=== PATIENT | female | born 1995 | race Caucasian/White ===

== ENCOUNTER 2019-05-09 18:55 | Inpatient (IN) | payer MEDICAID, OTHER ==
[2019-05-09] MEDS ORDERED: LORazepam 1 MG TAB PO STA (19:30)
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
[2019-05-09 20:56] LABS: Cocaine Screen,Urine Not Detected (NotDetected); Phencyclidine Screen,Urine Not Detected (NotDetected); Urn Cannabinoid Scrn Not Detected (NotDetected)
[2019-05-09 20:57] LABS: Amphetamine Screen,Urine Not Detected (NotDetected); Barbiturate Screen,Urine Not Detected (NotDetected); Benzodiazepines Screen,Urine Detected (NotDetected); Methadone Screen, Urine Not Detected (NotDetected); Opiate Screen,Urine Detected (NotDetected); Oxycodone Screen, Urine Not Detected (NotDetected); Tricyclic Antidepressant,Urine Not Detected (NotDetected)
[2019-05-09] MEDS ORDERED: MAGNESIUM HYDROXIDE 2,400 MG/10 ML CUP PO PRN (21:28)
[2019-05-09] MEDS ORDERED: MAG HYDROX/AL HYDROX/SIMETH 30 ML CUP PO PRN (21:28)
[2019-05-09] MEDS ORDERED: ZIPRASIDONE 20 MG VIAL IM PRN (21:28)
[2019-05-09] MEDS ORDERED: MELATONIN 10 MG PO SCH (21:30)
[2019-05-09] MEDS ORDERED: LORazepam 2 MG/ML INJ IM PRN (21:32)
[2019-05-09 21:48] LABS: Appearance,Urine Clear (Clear); Bilirubin,Urine Negative (Negative); Blood,Urine Large (Negative); Color,Urine Yellow; Glucose,Urine (UA) Negative (Negative); Ketones,Urine Negative (Negative); Leukocyte Esterase,Urine Negative (Negative); Mucus,Urine Occasional /hpf; Nitrite,Urine Negative (Negative); Protein,Urine Negative (Negative); RBC,Urine >182 /hpf (0-5); Specific Gravity,Urine 1.019 (1.001-1.035); Squamous Epithelial Cell,Urine 1 /hpf (0-4); Urobilinogen,Urine <2.0 mg/dL (<2.0); WBC,Urine <1 /hpf (0-5)
[2019-05-09 22:51] VITALS: BMI 21.9
[2019-05-09] MEDS: MELATONIN 5 MG TABLET PO SCH (23:00)
[2019-05-09] MEDS: PRAZOSIN 1 MG CAP PO SCH (23:47)
[2019-05-09] MEDS: SERTRALINE 100 MG TAB PO SCH (23:47)
--- NOTE | 2019-05-10 07:45 | P.HPMEDMHU ---
History of Present Illness H&P Date: 05/10/19 Chief Complaint: consult for MHU HPI The patient is a 23-year-old female with a past medical history of bipolar disorder, depression and anxiety, ADHD who is admitted to the psychiatry floor. Apparently the patient has been having episodes of paranoia reported samir t the staff at her [facility] were going to kill her, also claiming that the resident at [facility] is a devil and going to kill her. Apparently the patient's mom reported that the patient's symptoms became increasingly uncontrolled when she was taken off Abilify. The patient denies any chest pain shortness of breath nausea or vomiting, she reports intermittent headaches and breast pain at times but currently denies any of those symptoms. Patient is currently on her menstrual cycle. Patient denied any urinary symptoms such as dysuria or flank pain frequency UDS done in the ER was positive for benzodiazepines, urinalysis suggested microscopic hematuria Review of Systems Pertinent positives per HPI all other review of system was negative Past Medical History Past Medical History: No Reported History History of Any Multi-Drug Resistant Organisms: None Reported Past Surgical History: No Surgical Hx Reported Past Psychological History: Anxiety, Bipolar, Depression, Panic Disorder Smoking Status: Never smoker Past Alcohol Use History: None Reported Past Drug Use History: None Reported Medications and Allergies Home Medications Medication Instructions Recorded Confirmed Type LORazepam [Ativan] 0.5 mg PO Q4H PRN 05/09/19 05/09/19 History Melatonin 10 mg PO HS 05/09/19 05/09/19 History Methylphenidate HCl 72 mg PO DAILY 05/09/19 05/09/19 History [Methylphenidate HCl ER] Prazosin HCl 2 mg PO HS 05/09/19 05/09/19 History Sertraline HCl [Zoloft] 100 mg PO HS 05/09/19 05/09/19 History Allergies Allergy/AdvReac Type Severity Reaction Status Date / Time No Known Allergies Allergy Verified 05/09/19 22:52 Physical Exam Vitals: Vital Signs Temp Pulse Pulse Resp BP BP Pulse Ox 05/10/19 06:58 98.1 F 80 16 91/55 05/09/19 22:42 97.5 F L 76 16 133/81 05/09/19 18:57 98.6 F 141 H 20 140/88 99 Intake and Output 05/09/19 05/10/19 05/10/19 22:59 06:59 14:59 Other: Weight 54.431 kg Constitutional: No acute distress, sleepy but alert Eyes: Anicteric sclerae, moist conjunctiva, no lid-lag, PERRLA ENMT: NC/AT,Oropharynx clear, no erythema, exudates Neck:Supple, FROM, no masses, or JVD, No carotid bruits; No thyromegaly Lungs: Clear to auscultation, Clear to percussion, Normal respiratory effort, no accessory muscle use Cardiovascular: Heart regular in rate and rhythm, No murmurs, gallops, or rubs no peripheral edema Abdominal: Soft Nontender, nom distended, no guarding, no rebound or rigidity, Normoactive bowel sounds No hepatomegaly, No splenomegaly, No palpable mass No abdominal wall hernia noted Skin: Normal temperature, tone, texture, turgor, No induration No subcutaneous nodules, No rash, lesions, No ulcers Extremities:No digital cyanosis No clubbing, Pedal pulses intact and symmetrical Radial pulses intact and symmetrical Normal gait and station, No calf tenderness Psychiatric: Alert and oriented to person, place and time, poor insight flat affect previously reporting paranoid delusions Neuro: Muscles Strength 5/5 in all 4 extremities, Sensation to light touch grossly present throughout, Cranial nerves II-XII grossly intact. No focal sensory deficits Cranial Nerve Examination - Cranial Nerves Cranial Nerve II- Optic: Intact Cranial Nerve III- Oculomotor: Intact Cranial Nerve IV- Trochlear: Intact Cranial Nerve V- Trigeminal: Intact Cranial Nerve - Abducens: Intact Cranial Nerve VII- Facial: Intact Cranial Nerve VIII- Auditory: Intact Cranial Nerve IX- Glossopharyngeal: Intact Cranial Nerve X- Vagus: Intact Cranial Nerve XI- Accessory: Intact Cranial Nerve XII- Hypoglossal: Intact Results Labs: Abnormal Lab Results - Last 24 Hours (Table) 05/09/19 05/09/19 Range/Units 20:35 20:35 Urine Blood Large H (Negative) Urine RBC >182 H (0-5) /hpf Urine Mucus Occasional H (None) /hpf Urine Opiates Screen Detected H (NotDetected) U Benzodiazepines Scrn Detected H (NotDetected) Thrombosis Risk Factor Assmnt - Choose All That Apply Any of the Below Risk Factors Present?: No Other Risk Factors: No Other congenital or acquired thrombophilia - If yes, enter type in comment: No Thrombosis Risk Factor Assessment Level: Very Low Risk Assessment and Plan (1) Acute psychosis Current Visit: Yes Status: Acute Code(s): F23 - BRIEF PSYCHOTIC DISORDER SNOMED Code(s): 22961964 (2) Bipolar disorder Current Visit: Yes Status: Acute Code(s): F31.9 - BIPOLAR DISORDER, UNSPECIFIED SNOMED Code(s): 44303402 (3) Depression Current Visit: Yes Status: Acute Code(s): F32.9 - MAJOR DEPRESSIVE DISORDER, SINGLE EPISODE, UNSPECIFIED SNOMED Code(s): 41143070 (4) Anxiety Current Visit: Yes Status: Acute Code(s): F41.9 - ANXIETY DISORDER, UNSPECIFIED SNOMED Code(s): 38773529 (5) Paranoid schizophrenia Current Visit: Yes Status: Acute Code(s): F20.0 - PARANOID SCHIZOPHRENIA SNOMED Code(s): 51795466 (6) Microscopic hematuria Current Visit: Yes Status: Acute Code(s): R31.29 - OTHER MICROSCOPIC HEMATURIA SNOMED Code(s): 383652529 Plan: The patient is admitted to the acute inpatient psychiatry team will defer to them regarding ongoing psychotropic therapies and cognitive behavioral therapy. Per patient's history she denies any medical issues, her most recent vitals signs appear stable. Urinalysis suggested microscopic hematuria which is due to the patient being on her menstrual cycle. Admission labs are pending we'll tentatively sign off on the patient. We appreciate the opportunity to be involved in this patient's ongoing care. Nursing is advised to call with any questions Time with Patient: Greater than 30
[2019-05-10 10:29] LABS: Basophils % (A) 1 %; Eosinophils # (A) 0.1 k/uL (0-0.7); Eosinophils % (A) 3 %; HCT 39.3 % (34.0-46.0); Lymphocytes # (A) 1.3 k/uL (1.0-4.8); Lymphocytes % (A) 41 %; MCH 30.4 pg (25.0-35.0); Mean Platelet Volume 8.6; Monocytes # (A) 0.2 k/uL (0-1.0); Monocytes % (A) 8 %; Neutrophils # (A) 1.4 k/uL (1.3-7.7); Neutrophils % (A) 46 %; Platelet Count 166 k/uL (150-450); RBC 4.27 m/uL (3.80-5.40); RDW 12.1 % (11.5-15.5); WBC 3.1 k/uL (3.8-10.6)
[2019-05-10 11:05] LABS: ALT 37 U/L (9-52); AST 28 U/L (14-36); African American GFR (CKD) >90 (>60 ml/min/1.73 sqM); Albumin 4.3 g/dL (3.5-5.0); Alkaline Phosphatase 60 U/L (38-126); Anion Gap 9 mmol/L; Blood Urea Nitrogen 19 mg/dL (7-17); Calcium 9.2 mg/dL (8.4-10.2); Carbon Dioxide 26 mmol/L (22-30); Chloride 106 mmol/L (98-107); Cholesterol 151 mg/dL (<200); Glucose 56 mg/dL (74-99); HDL Cholesterol 51 mg/dL (40-60); LDL Cholesterol,Calculated 89 mg/dL (0-99); Potassium 4.4 mmol/L (3.5-5.1); Sodium 141 mmol/L (137-145); Total Bilirubin 0.4 mg/dL (0.2-1.3); Total Protein 7.2 g/dL (6.3-8.2); Triglycerides 54 mg/dL (<150)
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
[2019-05-10] MEDS: ACETAMINOPHEN TAB 325 MG TAB PO PRN (13:04)
[2019-05-10] MEDS: busPIRone HCl 10 MG TAB PO SCH ×2 (13:04→20:42)
[2019-05-10 17:47] LABS: Hemoglobin A1C 5.2 % (4.0-6.0)
[2019-05-10] MEDS: SERTRALINE 100 MG TAB PO SCH (20:43)
[2019-05-10] MEDS: PALIPERIDONE 3 MG TAB.ER.24 PO SCH (20:43)
[2019-05-10] MEDS: MELATONIN 5 MG TABLET PO SCH (20:43)
[2019-05-10] MEDS: PRAZOSIN 1 MG CAP PO SCH (20:43)
[2019-05-11] MEDS: busPIRone HCl 10 MG TAB PO SCH (08:21)
[2019-05-11] MEDS: CONCERTA 36 MG PO SCH (08:21)
[2019-05-11] MEDS: DOCUSATE 100 MG CAP PO SCH (11:47)
--- NOTE | 2019-05-11 12:05 | P.PN ---
Progress Note - Text Progress Note Date: 05/11/19 Interval History: Patient was seen this morning participating in group doing a puzzle and was ag reeable to designer writer in the office. Patient states that she did have some sharp pain earlier today in her abdomen and was somatically preoccupied with other discomforts and somatic symptoms. She stated that she is just finishing her menstrual cycle and also spoke about having constipation. Patient claimed that she is feeling mildly better with regards to her mood however continues to feel overwhelmed and preoccupied with the future and complains of anxiety. She states that her mother came yesterday to drop off her medications and gave her new shoes which she is happy about. She states that she is going to group which she is filing helpful. She states that her sleep was improved last night and has fair energy today. Patient continues to have poor insight and poor judgment. At this time patient denies any suicidal or homical ideations, intent or plan. Patient denies any auditory, visual hallucinations and denies any paranoia or delusions. Patient denies any side effects from the medications and has been compliant with meds. Mental Status Exam: General Appearance: Patient appears to be stated age is alert, directable however appears to be less frustrated and irritable. Patient has poor eye contact and poor hygiene and grooming. Behavior: Patient is seated in the chair, appears mildly anxious. Speech: Patient's speech is fluent and nonpressured. Mood/Affect: Patient reports their mood is mildly improved, affect is congruent Suicidality/Homicidality: Patient denies having any suicidal or homicidal ideation intent or plan. Perceptions: Patient admits to auditory or visual hallucinations. Though content/process: Patient is more goal oriented and less tangential today. Patient was catastrophizing multiple times and was somatically preoccupied. Memory and concentration: AOX3, grossly intact for the purposes of this session. Judgment and insight: Poor, improving mildly Assessment Schizoaffective disorder, depressed History of PTSD History of ADHD Intellectual disability Plan: -Patient continues to meet criteria for inpatient psychiatric admission for symptom stabilization and safety. Patient has signed adult voluntary form and medication consent and was placed in patient's chart. -Medications: Continue with Invega 3 mg nightly for mood stabilization/psychosis. Continue with Zoloft 100 mg daily for mood/anxiety. Continue with prazosin 2 mg daily at bedtime for nightmares. Continue with melatonin 10 mg daily at bedtime for sleep. Will increase BuSpar to 15 mg twice a day for anxiety. Patient can continue on her home dose of Concerta 72 mg daily for ADHD. -When necessary Ativan for agitation/aggression. -NRT -not needed as patient does not smoke -SW on board for discharge planning.
[2019-05-11] MEDS: LORazepam 1 MG TAB PO PRN (17:54)
[2019-05-11] MEDS: PALIPERIDONE 3 MG TAB.ER.24 PO SCH (21:12)
[2019-05-11] MEDS: busPIRone HCl 5 MG TAB PO SCH (21:12)
[2019-05-11] MEDS: PRAZOSIN 1 MG CAP PO SCH (21:12)
[2019-05-11] MEDS: SERTRALINE 100 MG TAB PO SCH (21:12)
[2019-05-11] MEDS: MELATONIN 5 MG TABLET PO SCH (21:13)
[2019-05-12 06:41] VITALS: RESP 16
[2019-05-12] MEDS: CONCERTA 36 MG PO SCH (08:31)
[2019-05-12] MEDS: busPIRone HCl 5 MG TAB PO SCH (08:31)
[2019-05-12] MEDS: DOCUSATE 100 MG CAP PO SCH (08:32)
[2019-05-12] MEDS ORDERED: busPIRone HCl 5 MG TAB PO ONE (08:45)
--- NOTE | 2019-05-12 09:11 | P.PN ---
Progress Note - Text Progress Note Date: 05/12/19 Interval History: Patient was seen this morning wandering the hallways and was agreeable to clinical writer in the office. Patient offered no overnight complaints and states that she is doing better overall. She states that she did have some sharp pain yesterday but this has gotten better today. Patient claimed that she is feeling better with regards to her mood and anxiety however claims that her anxiety is still somewhat high during the groups and she has difficulty around people. Patient also stated that sometimes during groups she feels that she is too "overwhelmed" and states that she is not able to keep up. She states that her sleep was improved last night and has fair energy today. Patient is having improving insight and poor judgment. At this time patient denies any suicidal or homical ideations, intent or plan. Patient denies any auditory, visual hallucinations and denies any paranoia or delusions. Patient denies any side effects from the medications and has been compliant with meds. Mental Status Exam: General Appearance: Patient appears to be stated age is alert, directable however appears to be less frustrated and irritable. Patient has improved eye contact and improved hygiene and grooming. Behavior: Patient is seated in the chair, appears less anxious. Speech: Patient's speech is fluent and nonpressured. Mood/Affect: Patient reports their mood is mildly improved, affect is congruent Suicidality/Homicidality: Patient denies having any suicidal or homicidal id eation intent or plan. Perceptions: Patient admits to auditory or visual hallucinations. Though content/process: Patient is more goal oriented and less tangential today. Memory and concentration: AOX3, grossly intact for the purposes of this session. Judgment and insight: Poor, improving mildly Assessment Schizoaffective disorder, depressed History of PTSD History of ADHD Intellectual disability Plan: -Patient continues to meet criteria for inpatient psychiatric admission for symptom stabilization and safety. Patient has signed adult voluntary form and medication consent and was placed in patient's chart. -Medications: Continue with Invega 3 mg nightly for mood stabilization/psychosis. Continue with Zoloft 100 mg daily for mood/anxiety. Continue with prazosin 2 mg daily at bedtime for nightmares. Continue with melatonin 10 mg daily at bedtime for sleep. Will increase BuSpar to 20 mg twice a day for anxiety. Continue with home dose of Concerta 72 mg daily for ADHD. -When necessary Ativan for agitation/aggression. -NRT -not needed as patient does not smoke -SW on board for discharge planning.
[2019-05-12] MEDS: LORazepam 1 MG TAB PO PRN (17:13)
[2019-05-12] MEDS: busPIRone HCl 10 MG TAB PO SCH (21:15)
[2019-05-12] MEDS: PRAZOSIN 1 MG CAP PO SCH (21:15)
[2019-05-12] MEDS: MELATONIN 5 MG TABLET PO SCH (21:15)
[2019-05-12] MEDS: SERTRALINE 100 MG TAB PO SCH (21:15)
[2019-05-12] MEDS: PALIPERIDONE 3 MG TAB.ER.24 PO SCH (21:16)
[2019-05-13] MEDS: LORazepam 1 MG TAB PO PRN (02:45)
[2019-05-13] MEDS: ACETAMINOPHEN TAB 325 MG TAB PO PRN (02:45)
[2019-05-13 05:22] VITALS: BP 111/70; PULSE 87; TEMP 98.1
[2019-05-13] MEDS: DOCUSATE 100 MG CAP PO SCH (08:57)
[2019-05-13] MEDS: busPIRone HCl 10 MG TAB PO SCH (08:57)
[2019-05-13] MEDS: CONCERTA 36 MG PO SCH (09:27)
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
== END 2019-05-13 15:47 | disposition home or self-care (01) | DRG 885 ==
LOC: EC 18:55 → 3MHU 21:19
PROVIDERS: ADMIT Psychiatry & Neurology Psychiatry; ATTEND Psychiatry & Neurology Psychiatry
DX: F25.1 Schizoaffective disorder, depressive type (principal); F79 Unspecified intellectual disabilities; F31.9 Bipolar disorder, unspecified; F41.0 Panic disorder [episodic paroxysmal anxiety]; F43.10 Post-traumatic stress disorder, unspecified; F90.9 Attention-deficit hyperactivity disorder, unspecified type; Z79.899 Other long term (current) drug therapy; Z91.5 Personal history of self-harm
CPT/HCPCS: 80053; 80061; 80306; 81001; 81025; 82075; 83036; 84443; 85025; 99285

== ENCOUNTER 2019-05-19 20:20 | Emergency (ER) | payer OTHER ==
[2019-05-19 20:31] VITALS: RESP 16
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
[2019-05-20 00:05] LABS: Basophils # (A) 0.1 k/uL (0-0.2); Basophils % (A) 1 %; Eosinophils # (A) 0.1 k/uL (0-0.7); Eosinophils % (A) 2 %; HCT 39.6 % (34.0-46.0); HGB 13.2 gm/dL (11.4-16.0); Lymphocytes # (A) 1.6 k/uL (1.0-4.8); Lymphocytes % (A) 22 %; MCH 30.1 pg (25.0-35.0); MCHC 33.5 g/dL (31.0-37.0); MCV 89.9 fL (80.0-100.0); Mean Platelet Volume 8.5; Monocytes # (A) 0.4 k/uL (0-1.0); Monocytes % (A) 5 %; Neutrophils # (A) 4.8 k/uL (1.3-7.7); Neutrophils % (A) 67 %; Platelet Count 184 k/uL (150-450); RDW 12.2 % (11.5-15.5); WBC 7.1 k/uL (3.8-10.6)
[2019-05-20 00:17] LABS: ALT 35 U/L (9-52); AST 23 U/L (14-36); African American GFR (CKD) >90 (>60 ml/min/1.73 sqM); Albumin 4.3 g/dL (3.5-5.0); Alkaline Phosphatase 62 U/L (38-126); Anion Gap 10 mmol/L; Blood Urea Nitrogen 15 mg/dL (7-17); Calcium 9.7 mg/dL (8.4-10.2); Carbon Dioxide 25 mmol/L (22-30); Chloride 104 mmol/L (98-107); Glucose 87 mg/dL (74-99); Potassium 3.7 mmol/L (3.5-5.1); Sodium 139 mmol/L (137-145); Total Bilirubin 0.4 mg/dL (0.2-1.3); Total Protein 7.2 g/dL (6.3-8.2)
[2019-05-20 01:59] LABS: Acetaminophen <10.0 ug/mL; Salicylate <1.0 mg/dL
[2019-05-20 02:02] VITALS: BP 128/86; PULSE 90; TEMP 97.1
[2019-05-20 02:17] LABS: Appearance,Urine Cloudy (Clear); Bacteria,Urine Rare /hpf; Bilirubin,Urine Negative (Negative); Blood,Urine Negative (Negative); Color,Urine Yellow; Glucose,Urine (UA) Negative (Negative); Ketones,Urine 1+ (Negative); Leukocyte Esterase,Urine Negative (Negative); Mucus,Urine Many /hpf; Nitrite,Urine Negative (Negative); PH, Urine 5.5 (5.0-8.0); Protein,Urine Trace (Negative); RBC,Urine 2 /hpf (0-5); Squamous Epithelial Cell,Urine 14 /hpf (0-4); Urobilinogen,Urine <2.0 mg/dL (<2.0); WBC,Urine 3 /hpf (0-5)
[2019-05-20 02:23] LABS: Amphetamine Screen,Urine Not Detected (NotDetected); Barbiturate Screen,Urine Not Detected (NotDetected); Benzodiazepines Screen,Urine Detected (NotDetected); Cocaine Screen,Urine Not Detected (NotDetected); Methadone Screen, Urine Not Detected (NotDetected); Opiate Screen,Urine Not Detected (NotDetected); Oxycodone Screen, Urine Not Detected (NotDetected); Phencyclidine Screen,Urine Not Detected (NotDetected); Tricyclic Antidepressant,Urine Not Detected (NotDetected); Urn Cannabinoid Scrn Not Detected (NotDetected)
== END 2019-05-20 05:00 ==
LOC: EEVIPCON 20:20 → EC 20:20
DX: F31.9 Bipolar disorder, unspecified (principal); R45.851 Suicidal ideations; F20.0 Paranoid schizophrenia; F41.9 Anxiety disorder, unspecified; Z79.899 Other long term (current) drug therapy
CPT/HCPCS: 82075; 36415; 80053; 85025; 81001; 81025; 80306; 83520; G0480; 80329; 99285

== ENCOUNTER 2019-11-14 19:18 | Inpatient (IN) | payer MEDICAID, OTHER ==
[2019-11-14 20:11] LABS: Amphetamine Screen,Urine Not Detected (NotDetected); Barbiturate Screen,Urine Not Detected (NotDetected); Benzodiazepines Screen,Urine Not Detected (NotDetected); Cocaine Screen,Urine Not Detected (NotDetected); Methadone Screen, Urine Not Detected (NotDetected); Opiate Screen,Urine Not Detected (NotDetected); Oxycodone Screen, Urine Not Detected (NotDetected); Phencyclidine Screen,Urine Not Detected (NotDetected); Tricyclic Antidepressant,Urine Not Detected (NotDetected); Urn Cannabinoid Scrn Not Detected (NotDetected)
[2019-11-14 21:15] LABS: Basophils % (A) 1 %; Eosinophils # (A) 0.1 k/uL (0-0.7); Eosinophils % (A) 1 %; HCT 40.4 % (34.0-46.0); HGB 13.8 gm/dL (11.4-16.0); Lymphocytes # (A) 1.5 k/uL (1.0-4.8); Lymphocytes % (A) 26 %; MCH 30.1 pg (25.0-35.0); MCV 88.4 fL (80.0-100.0); Mean Platelet Volume 9.5; Monocytes # (A) 0.4 k/uL (0-1.0); Monocytes % (A) 7 %; Neutrophils # (A) 3.6 k/uL (1.3-7.7); Neutrophils % (A) 63 %; Platelet Count 207 k/uL (150-450); RBC 4.57 m/uL (3.80-5.40); RDW 11.7 % (11.5-15.5); WBC 5.8 k/uL (3.8-10.6)
[2019-11-14 21:26] LABS: ALT 21 U/L (4-34); AST 26 U/L (14-36); African American GFR (CKD) >90 (>60 ml/min/1.73 sqM); Albumin 4.8 g/dL (3.5-5.0); Alkaline Phosphatase 84 U/L (38-126); Anion Gap 8 mmol/L; Blood Urea Nitrogen 20 mg/dL (7-17); Calcium 9.8 mg/dL (8.4-10.2); Carbon Dioxide 25 mmol/L (22-30); Chloride 103 mmol/L (98-107); Glucose 89 mg/dL (74-99); Non-African American GFR(CKD) >90 (>60 ml/min/1.73 sqM); Potassium 4.4 mmol/L (3.5-5.1); Sodium 136 mmol/L (137-145); Total Bilirubin 0.2 mg/dL (0.2-1.3); Total Protein 7.7 g/dL (6.3-8.2)
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
[2019-11-15] MEDS ORDERED: ZIPRASIDONE 20 MG VIAL IM PRN (02:27)
[2019-11-15] MEDS ORDERED: MAG HYDROX/AL HYDROX/SIMETH 30 ML CUP PO PRN (02:27)
[2019-11-15] MEDS ORDERED: MAGNESIUM HYDROXIDE 2,400 MG/10 ML CUP PO PRN (02:27)
[2019-11-15 02:56] LABS: Appearance,Urine Clear (Clear); Bilirubin,Urine Negative (Negative); Blood,Urine Negative (Negative); Color,Urine Light Yellow; Glucose,Urine (UA) Negative (Negative); Ketones,Urine Negative (Negative); Leukocyte Esterase,Urine Negative (Negative); Nitrite,Urine Negative (Negative); Protein,Urine Negative (Negative); Specific Gravity,Urine 1.023 (1.001-1.035); Urobilinogen,Urine <2.0 mg/dL (<2.0)
[2019-11-15 05:15] VITALS: RESP 16
[2019-11-15] MEDS: ACETAMINOPHEN TAB 325 MG TAB PO PRN (06:04)
[2019-11-15] MEDS: OXcarbazepine 150 MG TAB PO SCH ×3 (08:12→21:48)
[2019-11-15] MEDS: SERTRALINE 100 MG TAB PO SCH (08:12)
[2019-11-15] MEDS: LURASIDONE 80 MG TAB PO SCH ×2 (08:12→21:48)
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
[2019-11-15] MEDS ORDERED: ACETIC ACID 15 DROPS/ML DROPS ONE (22:00)
[2019-11-15] MEDS ORDERED: metroNIDAZOLE 500 MG TAB PO ONE (22:00)
[2019-11-15] MEDS: ACETIC ACID 15 DROPS/ML DROPS OTIC SCH (22:04)
[2019-11-15] MEDS: NEOMYCIN-POLYMYXIN-HC (3.5-10,000-10 MG) OTIC DROPS 10 ML BTL BOTH EARS SCH (22:05)
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
[2019-11-16] MEDS: NEOMYCIN-POLYMYXIN-HC (3.5-10,000-10 MG) OTIC DROPS 10 ML BTL BOTH EARS SCH ×4 (09:12→22:33)
[2019-11-16] MEDS: ACETIC ACID 15 DROPS/ML DROPS OTIC SCH ×4 (09:12→22:33)
[2019-11-16] MEDS: SERTRALINE 100 MG TAB PO SCH (09:13)
[2019-11-16] MEDS: LURASIDONE 80 MG TAB PO SCH ×2 (09:13→20:56)
[2019-11-16] MEDS: OXcarbazepine 150 MG TAB PO SCH ×3 (09:13→20:56)
--- NOTE | 2019-11-16 10:47 | P.PN ---
Progress Note - Text Interval history: The patient is found in group she follows me to an interview room. She indicates that her mood is "great". She states that she slept well last night staff reported she slept 7 hours. Appetite is stable. She indicates that she is speaking with her family via phone in those visits are going well. We discussed her current psychotropic medication she has no questions or concerns. We discussed strategies for her maintaining improve compliance at home. The patient has been attending groups. Staff report no behavioral disturbances. Mental status exam: The patient is alert she is pleasant and cooperative. She is dressed in her own clothing hygiene grooming are adequate. Eye contact is appropriate. Speech is fluent spontaneous nonpressured. She reports her mood is "great". Affect is euthymic. She is reporting no suicidal ideation intent or plan she is reporting no hopelessness thinking. She is reporting no hallucinations this morning. She specifically denies having any visual or auditory hallucinations no command auditory hallucinations. She indicates that she feels safe she is endorsing no specific delusions. Insight and judgment appear to be improving. She demonstrates no verbal or physical aggressiveness she demonstrates no involuntary repetitive movements. Plan: The patient will continue on her current psychotropic medication. She appears to be clinically stabilizing social work will reach out to her family to discuss discharge planning. If she continues to improve and remains stable she will be appropriate for discharge tomorrow. Vital signs reviewed they're within normal limits. She is encouraged to continue participating in the milieu.
[2019-11-16] MEDS: ACETAMINOPHEN TAB 325 MG TAB PO PRN ×2 (13:06→21:40)
[2019-11-17 06:41] VITALS: BP 116/78; PULSE 108; TEMP 97.8
[2019-11-17] MEDS: ACETIC ACID 15 DROPS/ML DROPS OTIC SCH ×2 (08:53→13:39)
[2019-11-17] MEDS: LURASIDONE 80 MG TAB PO SCH (08:54)
[2019-11-17] MEDS: NEOMYCIN-POLYMYXIN-HC (3.5-10,000-10 MG) OTIC DROPS 10 ML BTL BOTH EARS SCH ×2 (08:54→13:40)
[2019-11-17] MEDS: SERTRALINE 100 MG TAB PO SCH (08:54)
[2019-11-17] MEDS: OXcarbazepine 150 MG TAB PO SCH (08:54)
--- NOTE | 2019-11-17 10:26 | P.DS ---
Providers Date of admission: 11/15/19 02:24 Expected date of discharge: 11/17/19 Attending physician: Perez Ryan Consults: 11/15/19 02:27 Consult Physician Routine Consulting Provider: José Aldrich Consult Reason/Comments: new admission, H&P Do you want consulting provider notified?: Yes, Notify in am Primary care physician: Carina Pereyra - Discharge Diagnosis(es) (1) Acute psychosis Current Visit: No Status: Acute Priority: High (2) History of posttraumatic stress disorder (PTSD) Current Visit: No Status: Acute Priority: Medium Hospital Course: Brief summary admission note: This patient is a 24-year-old single female who was admitted to the mental health unit on a petition and clinical certificate indicating the patient was experiencing acute symptoms of psychosis. The patient described visual hallucinations where she was seen purple snakes on the floor water was on the floor and she describes seen ghosts. This was alarming to her it causes distress and she was yelling in the presence of her family. The patient has been prescribed Latuda Trileptal and Zoloft. She indicated that she was not fully compliant with the Latuda. She is also prescribed a higher dose of methylphenidate as well. For full details please refer to my psychiatric evaluation dated 11/15/2019. Summary of hospital course: The patient was admitted to the mental health unit on an existing deferral agreement. He was willing to sign in voluntarily. She indicated that she is willing to stay on all 3 of her psychotropic medications, the Zoloft, Latuda, Trileptal. We decided to hold the methylphenidate during this hospitalization as it could possibly exacerbate her psychosis. She indicated that she was accidentally missing her afternoon doses of Latuda and sometimes Trileptal. She states that she is willing to take the medication and believes that the medications help her. Upon our initial meeting she described no symptoms of psychosis and she demonstrated no symptoms of psychosis during the hospitalization. She has been pleasant cooperative she has been attending groups. She is able to demonstrate an ability to appropriately meet her activities of daily living. She described feelings of fatigue without the methylphenidate. She was seen by internal medicine for routine history and physical exam. hospital social worker met with the patient to complete a psychosocial assessment and for discharge planning purposes. Social work notes were reviewed. The patient's mother indicates that she is comfortable with the patient returning home today. The patient's reporting no hopelessness thinking no suicidal ideation intent or plan. She describes future oriented thinking specifically she states she is looking forward to returning to work next Thursday. Mental status exam: The patient is alert she is dressed in her own clothing hygiene grooming adequate. She is pleasant cooperative and easily directed. Eye contact is good speech is fluent spontaneous nonpressured. She demonstrates no tangential thinking loose associations or flight of ideas. She is reporting no auditory or visual hallucinations or any specific delusions. There is no observed evidence of psychosis. She does not appear hypomanic or manic. Insight and judgment appear to be grossly intact cognitively she remains grossly intact. She is oriented to person place and date. She demonstrates no verbal or physical aggressiveness she demonstrates no involuntary repetitive movements. She port no hopelessness thinking she reports no suicidal ideation intent or plan. She reports no homicidal ideation intent or plan. Impressions 1. Psychosis unspecified, rule out schizoaffective disorder, rule out stimulant-induced psychosis, post traumatic stress disorder chronic, rule out ADHD, rule out intellectual disability Plan: The patient will be discharged mental health unit today she will return residing with her family. She will continue on Latuda 80 mg twice daily with food she may take the second dose later in the evening to improve her compliance, she will continue on Trileptal 150 mg 3 times daily, her Trileptal level was 5.7 during this admission. She will continue the Zoloft 100 mg daily. We did not give her the methylphenidate during this admission as she presented with the report of acute psychosis. She is instructed to continue abstaining from any use of alcohol and marijuana or any illicit drugs. At this time there is no imminent safety risk she is appropriate for transition back to outpatient care. She is instructed to return to the hospital with any acute safety concerns. Patient Condition at Discharge: Stable Plan - Discharge Summary Discharge Rx Participant: No New Discharge Prescriptions: New Sertraline [Zoloft] 100 mg PO DAILY #30 tab Continue Lurasidone [Latuda] 80 mg PO BID #60 tab OXcarbazepine [Trileptal] 150 mg PO TID #45 tab Discontinued Methylphenidate HCl [Methylphenidate HCl ER] 72 mg PO DAILY Sertraline HCl [Zoloft] 200 mg PO DAILY Discharge Medication List Lurasidone [Latuda] 80 mg PO BID #60 tab 11/17/19 [Rx] OXcarbazepine [Trileptal] 150 mg PO TID #45 tab 11/17/19 [Rx] Sertraline [Zoloft] 100 mg PO DAILY #30 tab 11/17/19 [Rx] Follow up Appointment(s)/Referral(s): [facility] [Outside] - 11/22/19 1:30 pm (11-22-19 @ 1:[address] Fink via telepsych (she must come to [facility]) 11-23-19 @ 1:00 with [facility] via phone ) Carina Pereyra MD [Primary Care Provider] - 1-2 days Patient Instructions/Handouts: Brief Psychotic Disorder (DC) Activity/Diet/Wound Care/Special Instructions: Activity and diet as tolerated. Avoid the use of street drugs and alcohol. Take all medications as prescribed. When you are in need of refills on your medications please contact your medical provider and/or outpatient psychiatrist to have this done. Please go to scheduled outpatient appointment for aftercare. If symptoms return or become worse call the crisis line at and/or go to the nearest emergency room for an evaluation.
== END 2019-11-17 13:34 | disposition home or self-care (01) | DRG 885 ==
LOC: EC 19:18 → 3MHU 11-15 02:24
PROVIDERS: ADMIT Psychiatry & Neurology Psychiatry; ATTEND Psychiatry & Neurology Psychiatry
DX: F25.9 Schizoaffective disorder, unspecified (principal); F41.0 Panic disorder [episodic paroxysmal anxiety]; F43.10 Post-traumatic stress disorder, unspecified; Z79.899 Other long term (current) drug therapy; Z91.5 Personal history of self-harm; Z62.810 Personal history of physical and sexual abuse in childhood; L29.2 Pruritus vulvae; T43.506A Underdosing of unspecified antipsychotics and neuroleptics, initial encounter; Z91.128 Patient's intentional underdosing of medication regimen for other reason
CPT/HCPCS: 36415; 80053; 80061; 80183; 80306; 81003; 81025; 82075; 83036; 83690; 84443; 85025; 93005; 99285

== ENCOUNTER 2020-02-02 15:53 | Inpatient (IN) | payer MEDICAID, OTHER ==
[2020-02-02] MEDS ORDERED: LORazepam 2 MG/ML INJ IM STA (16:18)
[2020-02-02] MEDS ORDERED: LORazepam 1 MG TAB PO STA (16:18)
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
[2020-02-02 17:54] LABS: Amphetamine Screen,Urine Not Detected (NotDetected); Barbiturate Screen,Urine Not Detected (NotDetected); Benzodiazepines Screen,Urine Not Detected (NotDetected); Cocaine Screen,Urine Not Detected (NotDetected); Methadone Screen, Urine Not Detected (NotDetected); Opiate Screen,Urine Not Detected (NotDetected); Oxycodone Screen, Urine Not Detected (NotDetected); Phencyclidine Screen,Urine Not Detected (NotDetected); Tricyclic Antidepressant,Urine Not Detected (NotDetected); Urn Cannabinoid Scrn Not Detected (NotDetected)
[2020-02-02] MEDS ORDERED: ACETAMINOPHEN TAB 325 MG TAB PO STA (20:51)
[2020-02-02] MEDS ORDERED: MAGNESIUM HYDROXIDE 2,400 MG/10 ML CUP PO PRN (21:36)
[2020-02-02] MEDS ORDERED: ACETAMINOPHEN TAB 325 MG TAB PO PRN (21:36)
[2020-02-02] MEDS ORDERED: ZIPRASIDONE 20 MG VIAL IM PRN (21:36)
[2020-02-02] MEDS ORDERED: MAG HYDROX/AL HYDROX/SIMETH 30 ML CUP PO PRN (21:36)
[2020-02-02] MEDS: OXcarbazepine 150 MG TAB PO SCH (22:00)
[2020-02-02] MEDS: LORazepam 1 MG TAB PO PRN (22:03)
[2020-02-02 23:21] LABS: Appearance,Urine Clear (Clear); Bilirubin,Urine Negative (Negative); Blood,Urine Moderate (Negative); Color,Urine Yellow; Glucose,Urine (UA) Negative (Negative); Ketones,Urine Negative (Negative); Leukocyte Esterase,Urine Negative (Negative); Mucus,Urine Many /hpf; Nitrite,Urine Negative (Negative); Protein,Urine Trace (Negative); RBC,Urine 77 /hpf (0-5); Specific Gravity,Urine 1.029 (1.001-1.035); Squamous Epithelial Cell,Urine 6 /hpf (0-4); Urobilinogen,Urine <2.0 mg/dL (<2.0); WBC,Urine 1 /hpf (0-5)
[2020-02-03 08:19] LABS: Basophils % (A) 1 %; Eosinophils # (A) 0.1 k/uL (0-0.7); Eosinophils % (A) 2 %; HCT 39.5 % (34.0-46.0); HGB 12.4 gm/dL (11.4-16.0); Lymphocytes # (A) 1.6 k/uL (1.0-4.8); Lymphocytes % (A) 37 %; MCH 28.6 pg (25.0-35.0); MCHC 31.3 g/dL (31.0-37.0); MCV 91.3 fL (80.0-100.0); Mean Platelet Volume 8.7; Monocytes # (A) 0.4 k/uL (0-1.0); Monocytes % (A) 8 %; Neutrophils # (A) 2.2 k/uL (1.3-7.7); Neutrophils % (A) 49 %; Platelet Count 208 k/uL (150-450); RBC 4.32 m/uL (3.80-5.40); RDW 12.4 % (11.5-15.5); WBC 4.4 k/uL (3.8-10.6)
[2020-02-03 08:31] LABS: ALT 34 U/L (4-34); AST 36 U/L (14-36); African American GFR (CKD) >90 (>60 ml/min/1.73 sqM); Alkaline Phosphatase 66 U/L (38-126); Anion Gap 6 mmol/L; Blood Urea Nitrogen 14 mg/dL (7-17); Carbon Dioxide 26 mmol/L (22-30); Chloride 105 mmol/L (98-107); Cholesterol 223 mg/dL (<200); Glucose 87 mg/dL (74-99); HDL Cholesterol 66 mg/dL (40-60); LDL Cholesterol,Calculated 145 mg/dL (0-99); Non-African American GFR(CKD) >90 (>60 ml/min/1.73 sqM); Sodium 137 mmol/L (137-145); Total Bilirubin 0.3 mg/dL (0.2-1.3); Total Protein 6.8 g/dL (6.3-8.2); Triglycerides 61 mg/dL (<150)
[2020-02-03] MEDS ORDERED: LURASIDONE 80 MG TAB PO SCH (09:00)
[2020-02-03] MEDS: OXcarbazepine 150 MG TAB PO SCH ×3 (10:58→21:54)
[2020-02-03] MEDS: SERTRALINE 100 MG TAB PO SCH (10:58)
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
[2020-02-03 16:48] LABS: Hemoglobin A1C 5.1 % (4.0-6.0)
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
[2020-02-03 21:31] LABS: Amorphous Sediment,Urine Rare /hpf; Appearance,Urine Cloudy (Clear); Bacteria,Urine Occasional /hpf; Bilirubin,Urine Negative (Negative); Blood,Urine Large (Negative); Color,Urine Yellow; Glucose,Urine (UA) Negative (Negative); Hyaline Casts,Urine 4 /lpf (0-2); Ketones,Urine Negative (Negative); Leukocyte Esterase,Urine Moderate (Negative); Mucus,Urine Many /hpf; Nitrite,Urine Negative (Negative); PH, Urine 5.5 (5.0-8.0); Protein,Urine Trace (Negative); RBC,Urine 4 /hpf (0-5); Specific Gravity,Urine 1.031 (1.001-1.035); Squamous Epithelial Cell,Urine 10 /hpf (0-4); Urobilinogen,Urine <2.0 mg/dL (<2.0); WBC,Urine 8 /hpf (0-5)
[2020-02-04] MEDS: SERTRALINE 100 MG TAB PO SCH (08:43)
[2020-02-04] MEDS: OXcarbazepine 150 MG TAB PO SCH ×3 (08:43→20:54)
[2020-02-04] MEDS ORDERED: ARIPiprazole 5 MG TAB PO SCH (09:00)
--- NOTE | 2020-02-04 11:18 | P.PN ---
Progress Note - Text Progress Note Date: 02/04/20 Interval History: Patient was seen laying down in her bed this morning and was directable and ag reeable to speak with typewriter operator automatic in the office. Patient appeared to be just waking up from sleep and claims that she has mainly been isolative most of yesterday. She states that she has not gone any groups so far. She claims that she has been taking her medications however states that "my medications are all messed up and you don't know what you're doing". She denies any marked galactorrhea at this time and is agreeable to continue with the medications. She claims that she slept well last night. She states that her mood is continued to be depressed. At this time patient denies any suicidal or homical ideations, intent or plan. Patient denies any auditory, visual hallucinations and denies any paranoia or delusions. Patient denies any side effects from the medications and has been compliant with meds. Mental Status Exam: General Appearance: Patient appears to be stated age is lethargic, directable, and attempts to cooperate. Patient appears to have poor hygiene and grooming. Behavior: Patient is seated without any agitated behavior. Attempts to cooperate. Isolative. Speech: Patient's speech is fluent and nonpressured. Soft tone. Mood/Affect: Patient reports their mood is depressed, affect is congruent and constricted. Suicidality/Homicidality: Patient denies having any homicidal ideation intent or plan. Denies any suicidal ideations intent or plan Perceptions: Patient denies any visual hallucinations and denies any auditory hallucinations Though content/process: There is no evidence of any delusional thought content and thought process is linear and goal-directed. [place]. Memory and concentration: AOX3, grossly intact for the purposes of this session Judgment and insight: poor, mildly improving Assessment Mood disorder unspecified History of PTSD Histrionic personality traits Plan: -Patient continues to meet criteria for inpatient psychiatric admission for symptom stabilization and safety. Patient has signed adult voluntary form and medication consent and was placed in patient's chart. -Medications: Continue with Trileptal 150 mg 3 times a day for mood stabilization, Zoloft 200 mg daily for mood/anxiety, Abilify was increased to 5 mg daily for mood stabilization -When necessary Ativan and Geodon for agitation/aggression. -NRT -not needed as patient does not smoke. -SW on board for discharge planning. Encouraged the patient to participate in milieu.
[2020-02-04] MEDS: LORazepam 1 MG TAB PO PRN (19:35)
[2020-02-05] MEDS ORDERED: ARIPiprazole 5 MG TAB PO SCH (09:00)
[2020-02-05] MEDS: OXcarbazepine 150 MG TAB PO SCH ×3 (09:08→21:30)
[2020-02-05] MEDS: SERTRALINE 100 MG TAB PO SCH (09:08)
--- NOTE | 2020-02-05 10:37 | P.PN ---
Progress Note - Text Progress Note Date: 02/05/20 Interval History: Patient was seen laying down in her bed this morning and was directable and ag reeable to speak with typewriter assembler in the office. Patient appeared to have a improvement in her affect this morning and claims that she is feeling better today. She claims that the medications of slowly been helping her however remains tired during the day. She claims that she is usually on Concerta which was started at [facility] and it allows her to function better during the day and was asked to be restarted on it. She states that she was able sleep well throughout the night and claims that she has been going to some groups however was finding it difficult to participate in. She was asking about discharge today as she has a job that she needs to get back to. She denies any marked galactorrhea at this time and is agreeable to continue with the medications. At this time patient denies any suicidal or homical ideations, intent or plan. Patient denies any auditory, visual hallucinations and denies any paranoia or delusions. Patient denies any side effects from the medications and has been compliant with meds. Mental Status Exam: General Appearance: Patient appears to be stated age is lethargic, directable, and attempts to cooperate. Patient appears to have poor hygiene and grooming. Behavior: Patient is seated without any agitated behavior. Attempts to cooperate. Speech: Patient's speech is fluent and nonpressured. Soft tone. Mood/Affect: Patient reports their mood is improving mildly, affect is congruent and brighter affect today Suicidality/Homicidality: Patient denies having any homicidal ideation intent or plan. Denies any suicidal ideations intent or plan Perceptions: Patient denies any visual hallucinations and denies any auditory hallucinations Though content/process: There is no evidence of any delusional thought content and thought process is linear and goal-directed. [place]. Memory and concentration: AOX3, grossly intact for the purposes of this session Judgment and insight: poor, mildly improving Assessment Mood disorder unspecified History of PTSD Histrionic personality traits Plan: -Patient continues to meet criteria for inpatient psychiatric admission for symptom stabilization and safety. Patient has signed adult voluntary form and medication consent and was placed in patient's chart. -Medications: Continue with Trileptal 150 mg 3 times a day for mood stabilization, Zoloft 200 mg daily for mood/anxiety, Abilify was increased to 10 mg daily for mood stabilization. We'll consider placing patient on Abilify Maintenna to ensure compliance. -When necessary Ativan and Geodon for agitation/aggression. -NRT -not needed as patient does not smoke. -SW on board for discharge planning. Encouraged the patient to participate in milieu. Likely discharge in 1-2 days back home.
[2020-02-05] MEDS: LORazepam 1 MG TAB PO PRN ×2 (12:21→21:31)
[2020-02-06 07:02] VITALS: RESP 18; TEMP 97.9
[2020-02-06] MEDS: OXcarbazepine 150 MG TAB PO SCH ×3 (09:04→20:46)
[2020-02-06] MEDS: SERTRALINE 100 MG TAB PO SCH (09:04)
[2020-02-06] MEDS: ARIPiprazole 10 MG TAB PO SCH (09:04)
--- NOTE | 2020-02-06 09:08 | P.PN ---
Progress Note - Text Progress Note Date: 02/06/20 Interval History: Patient was seen laying down in her bed this morning and was directable and ag reeable to speak with health science writer in the office. Patient appeared to have a improvement in her affect this morning. She claims that she was able to shower yesterday and states that she feels "better overall". She claims that her meds have been helping her mood and claims that she feels less depressed today. She states that she spoke with her mother yesterday and claims that she wants to go home and go back to work soon. She states that she was able sleep well throughout the night. She states that she attempted to go to some groups. She did claim that she is continuing to have some galactorrhea which she bnoticed yesterday and will continue to monitor it. At this time patient denies any suicidal or homical ideations, intent or plan. Patient denies any auditory, visual hallucinations and denies any paranoia or delusions. Patient denies any side effects from the medications and has been compliant with meds. Mental Status Exam: General Appearance: Patient appears to be stated age is lethargic, directable, and attempts to cooperate. Patient appears to have improving hygiene and grooming. Behavior: Patient is seated without any agitated behavior. Attempts to cooperate. Speech: Patient's speech is fluent and nonpressured. Soft tone. Mood/Affect: Patient reports their mood is improving mildly, affect is congruent and constrcited today Suicidality/Homicidality: Patient denies having any homicidal ideation intent or plan. Denies any suicidal ideations intent or plan Perceptions: Patient denies any visual hallucinations and denies any auditory hallucinations Though content/process: There is no evidence of any delusional thought content and thought process is linear and goal-directed. [place]. Memory and concentration: AOX3, grossly intact for the purposes of this session Judgment and insight: mildly improving Assessment Mood disorder unspecified History of PTSD Histrionic personality traits Plan: -Patient continues to meet criteria for inpatient psychiatric admission for symptom stabilization and safety. Patient has signed adult voluntary form and medication consent and was placed in patient's chart. -Medications: Continue with Trileptal 150 mg 3 times a day for mood stabilization, Zoloft 200 mg daily for mood/anxiety, Abilify continued at 10 mg daily for mood stabilization. Spoke with patient about Abilify Maintenna MONTEIRO however she declined it at this time and claims that she has been taking her meds with the help of her mother at home everyday. -When necessary Ativan and Geodon for agitation/aggression. -NRT -not needed as patient does not smoke. -SW on board for discharge planning. Encouraged the patient to participate in milieu. Likely discharge back home tomorrow.
[2020-02-07 06:50] VITALS: BP 145/96; PULSE 94
[2020-02-07] MEDS: LORazepam 1 MG TAB PO PRN (07:56)
[2020-02-07] MEDS: ARIPiprazole 10 MG TAB PO SCH (09:18)
[2020-02-07] MEDS: OXcarbazepine 150 MG TAB PO SCH (09:18)
[2020-02-07] MEDS: SERTRALINE 100 MG TAB PO SCH (09:18)
--- NOTE | 2020-02-07 10:01 | P.DS ---
Providers Date of admission: 02/02/20 20:47 Expected date of discharge: 02/07/20 Attending physician: Chris Montague MD Consults: 02/02/20 21:36 Consult Physician Routine Consulting Provider: José Physician Consult Reason/Comments: H & P and medical care Do you want consulting provider notified?: Yes Primary care physician: Carina Pereyra - Discharge Diagnosis(es) (1) Mood disorder Current Visit: Yes Status: Acute Priority: High (2) History of posttraumatic stress disorder (PTSD) Current Visit: Yes Status: Acute Priority: Medium (3) Histrionic personality Current Visit: Yes Status: Acute Priority: Low Hospital Course: Admission HPI: Admission and was completed by Dr. 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 Patient's adoptive parents are guardians. Patient presented to the hospital yesterday with the chief complaint of significant increase in her anxiety. Patient also complained of side effects from her medications and was admitted to the mental health unit. Patient states that she feels that [facility] is "messing everything up" and claims that "the doctors are changing everything". She states that she was experiencing galactorrhea in the past and has started to have development of some galactorrhea recently with medication changes. Patient was a poor historian regarding her medication adjustments and what she is taking however she states that her parents do help her with her medications and taking them every day. She states that she was discontinued off of Risperdal months ago. She also claimed that she is on "too many medications" and has been finding them confusing. She states that "I can sleep the whole day" so admits to poor motivation. She was somatically preoccupied speaking about headaches and other pains in her body. She states have a fair appetite. She endorsed weight gain however did not mention how much weight. She states that she has bad anxiety and feels depressed and also fatigued at this time. Patient denies any suicidal or homicidal ideations intent or plan. At this time patient denies any auditory or visual hallucinations. Patient denies any flight of ideas racing thoughts and increased in goal directed behavior. Patient admits to using alcohol occasionally and denies any other recreational drug use. Special Education Teachers spoke with Dr. Nunn from [facility] who is patient's outpatient psychiatrist over the phone to discuss patient's history and patient's treatment. Dr. Nunn felt that patient has histrionic traits and somatitizes her depression and anxiety and has a history of intellectual disability and has difficulty remembering her medications. Dr. Nunn felt the patient would benefit from Abilify to help with the galactorrhea and mood lability." Hospital course: Upon admission to the unit patient was initially depressed and anxious. Patient was however directable and agreeable to commence treatment. Patient got along well with other patients on the unit and followed unit protocol. Patient was compliant with the medications and denied any side effects throughout hospital course. Patient was started on Abilify by mouth and titrated up to a dose of 10 mg daily for mood stabilization/psychosis. Patient's Latuda was discontinued due to possibility of exacerbating galactorrhea. Patient was continued on her home dose of Zoloft 200 mg daily for mood/anxiety, patient was also restarted on her home dose of Trileptal 150 mg twice a day for mood stabilization. Patient was offered Abilify Maintenna long-acting injection to ensure compliance however patient adamantly declined and states that her mother helps her with compliance at home of her medications. Patient spoke of her stressors and engaged in therapy both group and individual. Patient was also seen by medical team for history and physical exam. Throughout the course of the hospitalization patient gradually improved with regards to mood, anxiety, sleep and became more future oriented with improvment in her insight and judgment. On the day of discharge patient denied any suicidal or homicidal ideations intent or plan denied any auditory or visual hallucinations. Patient endorsed wanting to live for her family and her job. The patient denied any access to guns or weapons. Patient denied any paranoia and did not endorse any delusions. Patient does not have a significant history of substance abuse however was counseled on abstaining from all substances including alcohol and marijuana. Patient was also counseled on the medications and need for regular compliance and was encouraged to follow-up with their outpatient appointment for mental health and also for primary care. Prior to discharge a family meeting will be arranged by outreach and education social worker to answer any questions and ensure safety upon discharge. Mental status exam: General Appearance: Patient appears to be stated age is alert, directable, and attempts to be cooperative. Patient is in no acute distress and has fair hygiene and grooming Behavior: Patient is calmly seated without any agitated behavior. Attempts to be cooperative. Speech: Patient's speech is fluent and nonpressured. Mood/Affect: Patient reports their mood is "good", affect is congruent and constricted Suicidality/Homicidality: Patient denies having any suicidal or homicidal ideation intent or plan. Perceptions: Patient denies any auditory or visual hallucinations. Though content/process: There is no evidence of any delusional thought content and thought process is linear and goal-directed. more future oriented Memory and concentration: AOX3, grossly intact for the purposes of this session. Can spell "WORLD" backwards correctly. Judgment and insight: Improved with guarded prognosis Impression: Mood disorder unspecified History of PTSD Histrionic personality disorder Plan: -Continue with discharge today as patient has improved and stabilized psychiatrically and is not currently an imminent threat to herself and/or others. -Continue medications: Abilify by mouth 10 mg daily for mood stabilization/psychosis, this medication can be switched to daily at bedtime dosing if patient believes that it is causing some daytime fatigue. Continue with Trileptal 150 mg twice a day for mood stabilization and Zoloft 200 mg daily for mood/anxiety. -Patient was counseled on the need for medication compliance and appropriate follow-up at mental health and also primary care for medical issues. Patient verbalized understanding and agreed. -Social work to arrange for and conduct family meeting to ensure safety upon discharge and answer any questions/concerns. Social work also to arrange for patients follow up appointments with [facility] for psychiatric care along with follow up with primary care provider. -Patient counseled on abstaining from recreational drugs and marijuana and alcohol. Was informed/educated on the adverse effects on their physical and mental health. Patient verbally agreed and understood]. -Patient was instructed to return to the hospital or seek immediate medical care if their psychiatric or medical symptoms do worsen or reoccur. Allergies Allergy/AdvReac Type Severity Reaction Status Date / Time No Known Allergies Allergy Verified 02/02/20 19:32 Laboratory Results WBC 4.4 k/uL (3.8-10.6) 02/03/20 07:58 RBC 4.32 m/uL (3.80-5.40) 02/03/20 07:58 Hgb 12.4 gm/dL (11.4-16.0) 02/03/20 07:58 Hct 39.5 % (34.0-46.0) 02/03/20 07:58 MCV 91.3 fL (80.0-100.0) 02/03/20 07:58 MCH 28.6 pg (25.0-35.0) 02/03/20 07:58 MCHC 31.3 g/dL (31.0-37.0) 02/03/20 07:58 RDW 12.4 % (11.5-15.5) 02/03/20 07:58 Plt Count 208 k/uL (150-450) 02/03/20 07:58 Neutrophils % 49 % 02/03/20 07:58 Lymphocytes % 37 % 02/03/20 07:58 Monocytes % 8 % 02/03/20 07:58 Eosinophils % 2 % 02/03/20 07:58 Basophils % 1 % 02/03/20 07:58 Neutrophils # 2.2 k/uL (1.3-7.7) 02/03/20 07:58 Lymphocytes # 1.6 k/uL (1.0-4.8) 02/03/20 07:58 Monocytes # 0.4 k/uL (0-1.0) 02/03/20 07:58 Eosinophils # 0.1 k/uL (0-0.7) 02/03/20 07:58 Basophils # 0.0 k/uL (0-0.2) 02/03/20 07:58 Sodium 137 mmol/L (137-145) 02/03/20 07:58 Potassium 4.0 mmol/L (3.5-5.1) 02/03/20 07:58 Chloride 105 mmol/L (98-107) 02/03/20 07:58 Carbon Dioxide 26 mmol/L (22-30) 02/03/20 07:58 Anion Gap 6 mmol/L 02/03/20 07:58 BUN 14 mg/dL (7-17) 02/03/20 07:58 Creatinine 0.84 mg/dL (0.52-1.04) 02/03/20 07:58 Est GFR (CKD-EPI)AfAm >90 (>60 ml/min/1.73 sqM) 02/03/20 07:58 Est GFR (CKD-EPI)NonAf >90 (>60 ml/min/1.73 sqM) 02/03/20 07:58 Glucose 87 mg/dL (74-99) 02/03/20 07:[address] Glu mg/dL 100 02/03/20 07:58 Hemoglobin A1c 5.1 % (4.0-6.0) 02/03/20 07:58 Calcium 9.0 mg/dL (8.4-10.2) 02/03/20 07:58 Total Bilirubin 0.3 mg/dL (0.2-1.3) 02/03/20 07:58 AST 36 U/L (14-36) 02/03/20 07:58 ALT 34 U/L (4-34) 02/03/20 07:58 Alkaline Phosphatase 66 U/L (38-126) 02/03/20 07:58 Total Protein 6.8 g/dL (6.3-8.2) 02/03/20 07:58 Albumin 4.0 g/dL (3.5-5.0) 02/03/20 07:58 Triglycerides 61 mg/dL (<150) 02/03/20 07:58 Cholesterol 223 mg/dL (<200) H 02/03/20 07:58 LDL Cholesterol, Calc 145 mg/dL (0-99) H 02/03/20 07:58 HDL Cholesterol 66 mg/dL (40-60) H 02/03/20 07:58 TSH 2.550 mIU/L (0.465-4.680) 02/03/20 07:58 Urine Color Yellow 02/03/20 Unknown Urine Appearance Cloudy (Clear) H 02/03/20 Unknown Urine pH 5.5 (5.0-8.0) 02/03/20 Unknown Ur Specific [place] 1.031 (1.001-1.035) 02/03/20 Unknown Urine Protein Trace (Negative) H 02/03/20 Unknown Urine Glucose (UA) Negative (Negative) 02/03/20 Unknown Urine Ketones Negative (Negative) 02/03/20 Unknown Urine Blood Large (Negative) H 02/03/20 Unknown Urine Nitrite Negative (Negative) 02/03/20 Unknown Urine Bilirubin Negative (Negative) 02/03/20 Unknown Urine Urobilinogen <2.0 mg/dL (<2.0) 02/03/20 Unknown Ur Leukocyte Esterase Moderate (Negative) H 02/03/20 Unknown Urine RBC 4 /hpf (0-5) 02/03/20 Unknown Urine WBC 8 /hpf (0-5) H 02/03/20 Unknown Ur Squamous Epith Cells 10 /hpf (0-4) H 02/03/20 Unknown Amorphous Sediment Rare /hpf (None) H 02/03/20 Unknown Urine Bacteria Occasional /hpf (None) H 02/03/20 Unknown Hyaline Casts 4 /lpf (0-2) H 02/03/20 Unknown Urine Mucus Many /hpf (None) H 02/03/20 Unknown Urine HCG, Qual Not Detected (Not Detectd) 02/02/20 22:40 Urine Opiates Screen Not Detected (NotDetected) 02/02/20 16:45 Ur Oxycodone Screen Not Detected (NotDetected) 02/02/20 16:45 Urine Methadone Screen Not Detected (NotDetected) 02/02/20 16:45 Ur Propoxyphene Screen Not Detected (NotDetected) 02/02/20 16:45 Ur Barbiturates Screen Not Detected (NotDetected) 02/02/20 16:45 U Tricyclic Antidepress Not Detected (NotDetected) 02/02/20 16:45 Ur Phencyclidine Scrn Not Detected (NotDetected) 02/02/20 16:45 Ur Amphetamines Screen Not Detected (NotDetected) 02/02/20 16:45 U Methamphetamines Scrn Not Detected (NotDetected) 02/02/20 16:45 U Benzodiazepines Scrn Not Detected (NotDetected) 02/02/20 16:45 Urine Cocaine Screen Not Detected (NotDetected) 02/02/20 16:45 U Marijuana (THC) Screen Not Detected (NotDetected) 02/02/20 16:45 Vital Signs Temp 97.9 F 02/07/20 06:49 Pulse 94 02/07/20 06:49 Resp 18 02/07/20 06:49 BP 145/96 02/07/20 06:49 Pulse Ox 94 L 02/07/20 06:49 Patient Condition at Discharge: Stable Plan - Discharge Summary New Discharge Prescriptions: New ARIPiprazole [Abilify] 10 mg PO DAILY 30 Days tab Acetaminophen Tab [Tylenol] 650 mg PO Q4HR PRN tab PRN Reason: Pain/Discomfort Sertraline [Zoloft] 200 mg PO DAILY 30 Days tab Continue OXcarbazepine [Trileptal] 150 mg PO TID 30 Days tab Discontinued Lurasidone [Latuda] 80 mg PO BID #60 tab Sertraline [Zoloft] 200 mg PO DAILY Methylphenidate HCl [Methylphenidate HCl ER] 72 mg PO DAILY Discharge Medication List ARIPiprazole [Abilify] 10 mg PO DAILY 30 Days tab 02/07/20 [Rx] Acetaminophen Tab [Tylenol] 650 mg PO Q4HR PRN tab 02/07/20 [Rx] OXcarbazepine [Trileptal] 150 mg PO TID 30 Days tab 02/07/20 [Rx] Sertraline [Zoloft] 200 mg PO DAILY 30 Days tab 02/07/20 [Rx] Follow up Appointment(s)/Referral(s): Carina Pereyra MD [Primary Care Provider] - 1-2 days Patient Instructions/Handouts: Generalized Anxiety Disorder (ED) Activity/Diet/Wound Care/Special Instructions: Activity and diet as tolerated. Avoid the use of street drugs and alcohol. Take all medications as prescribed. When you are in need of refills on your medications please contact your medical provider and/or outpatient psychiatrist to have this done. Please go to scheduled outpatient appointment for aftercare treatment. If symptoms return or become worse, call the crisis line at and/or go to the nearest emergency room for evaluation Discharge Disposition: HOME SELF-CARE
== END 2020-02-07 14:35 | disposition home or self-care (01) | DRG 885 ==
LOC: EC 15:53 → 3MHU 20:47
PROVIDERS: ADMIT Psychiatry & Neurology Psychiatry; ATTEND Psychiatry & Neurology Psychiatry
DX: F39 Unspecified mood [affective] disorder (principal); F79 Unspecified intellectual disabilities; F41.0 Panic disorder [episodic paroxysmal anxiety]; G35 Multiple sclerosis; F60.4 Histrionic personality disorder; F43.10 Post-traumatic stress disorder, unspecified; R07.89 Other chest pain; N64.3 Galactorrhea not associated with childbirth; L29.2 Pruritus vulvae; Z79.899 Other long term (current) drug therapy; Z62.810 Personal history of physical and sexual abuse in childhood; Z91.5 Personal history of self-harm
CPT/HCPCS: 80053; 80061; 80183; 80306; 81001; 81025; 82075; 83036; 84443; 85025; 93005; 96372; 99285

== ENCOUNTER 2020-02-14 18:09 | Emergency (ER) | payer OTHER ==
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
[2020-02-14 19:10] LABS: Basophils % (A) 0 %; Eosinophils # (A) 0.1 k/uL (0-0.7); Eosinophils % (A) 1 %; HCT 38.9 % (34.0-46.0); HGB 13.1 gm/dL (11.4-16.0); Lymphocytes # (A) 1.1 k/uL (1.0-4.8); Lymphocytes % (A) 15 %; MCH 30.3 pg (25.0-35.0); MCHC 33.7 g/dL (31.0-37.0); MCV 89.8 fL (80.0-100.0); Mean Platelet Volume 9.3; Monocytes # (A) 0.4 k/uL (0-1.0); Monocytes % (A) 6 %; Neutrophils # (A) 5.5 k/uL (1.3-7.7); Neutrophils % (A) 75 %; Platelet Count 185 k/uL (150-450); RBC 4.33 m/uL (3.80-5.40); RDW 12.1 % (11.5-15.5); WBC 7.3 k/uL (3.8-10.6)
[2020-02-14 19:16] LABS: African American GFR (CKD) >90 (>60 ml/min/1.73 sqM); Alcohol <10 mg/dL; Anion Gap 8 mmol/L; Blood Urea Nitrogen 10 mg/dL (7-17); Calcium 9.5 mg/dL (8.4-10.2); Carbon Dioxide 24 mmol/L (22-30); Chloride 104 mmol/L (98-107); Glucose 102 mg/dL (74-99); Non-African American GFR(CKD) >90 (>60 ml/min/1.73 sqM); Potassium 3.9 mmol/L (3.5-5.1); Sodium 136 mmol/L (137-145)
[2020-02-14 19:34] LABS: Amphetamine Screen,Urine Not Detected (NotDetected); Barbiturate Screen,Urine Not Detected (NotDetected); Benzodiazepines Screen,Urine Not Detected (NotDetected); Cocaine Screen,Urine Not Detected (NotDetected); Methadone Screen, Urine Not Detected (NotDetected); Opiate Screen,Urine Not Detected (NotDetected); Oxycodone Screen, Urine Not Detected (NotDetected); Phencyclidine Screen,Urine Not Detected (NotDetected); Tricyclic Antidepressant,Urine Not Detected (NotDetected); Urn Cannabinoid Scrn Not Detected (NotDetected)
[2020-02-15] MEDS ORDERED: ACETAMINOPHEN TAB 325 MG TAB PO STA (01:36)
[2020-02-15] MEDS ORDERED: LORazepam 1 MG TAB PO STA ×2 (04:09→10:33)
[2020-02-15 11:29] VITALS: BP 125/74; PULSE 78; RESP 16; TEMP 98
== END 2020-02-15 12:09 ==
LOC: EC 18:09
DX: F23 Brief psychotic disorder (principal); Z86.59 Personal history of other mental and behavioral disorders
CPT/HCPCS: 82075; 36415; 80048; 85025; 81025; 80306; 99285; G0480; 80320

== ENCOUNTER 2020-03-04 16:56 | Emergency (ER) | payer OTHER ==
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
[2020-03-04 17:09] VITALS: BP 141/102; PULSE 88; RESP 18; TEMP 98
[2020-03-04 17:48] LABS: Appearance,Urine Clear (Clear); Bacteria,Urine Rare /hpf; Bilirubin,Urine Negative (Negative); Blood,Urine Trace (Negative); Color,Urine Colorless; Glucose,Urine (UA) Negative (Negative); Ketones,Urine Negative (Negative); Leukocyte Esterase,Urine Negative (Negative); Mucus,Urine Rare /hpf; Nitrite,Urine Negative (Negative); Protein,Urine Negative (Negative); RBC,Urine <1 /hpf (0-5); Specific Gravity,Urine 1.009 (1.001-1.035); Squamous Epithelial Cell,Urine <1 /hpf (0-4); Urobilinogen,Urine <2.0 mg/dL (<2.0); WBC,Urine <1 /hpf (0-5)
[2020-03-04 17:53] LABS: Amphetamine Screen,Urine Not Detected (NotDetected); Barbiturate Screen,Urine Not Detected (NotDetected); Benzodiazepines Screen,Urine Not Detected (NotDetected); Cocaine Screen,Urine Not Detected (NotDetected); Methadone Screen, Urine Not Detected (NotDetected); Opiate Screen,Urine Not Detected (NotDetected); Oxycodone Screen, Urine Not Detected (NotDetected); Phencyclidine Screen,Urine Not Detected (NotDetected); Tricyclic Antidepressant,Urine Not Detected (NotDetected); Urn Cannabinoid Scrn Not Detected (NotDetected)
== END 2020-03-04 18:30 | disposition home or self-care (01) ==
LOC: EC 16:56
DX: F40.210 Arachnophobia (principal); R44.0 Auditory hallucinations; R44.1 Visual hallucinations; Z62.810 Personal history of physical and sexual abuse in childhood
CPT/HCPCS: 80306; 81001; 99285

== ENCOUNTER 2020-03-21 15:05 | Emergency (ER) | payer OTHER ==
[2020-03-21 15:10] VITALS: BP 120/64; PULSE 73; RESP 18; TEMP 97.7
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
== END 2020-03-21 17:45 | disposition home or self-care (01) ==
LOC: EC 15:05
DX: F31.9 Bipolar disorder, unspecified (principal); F23 Brief psychotic disorder; F41.9 Anxiety disorder, unspecified; Z79.899 Other long term (current) drug therapy
CPT/HCPCS: 82075; 99285

== ENCOUNTER 2020-04-17 16:52 | Inpatient (IN) | payer MEDICAID, OTHER ==
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
[2020-04-17] MEDS ORDERED: ACETAMINOPHEN TAB 325 MG TAB PO STA (18:10)
[2020-04-17 18:12] LABS: Basophils % (A) 1 %; Eosinophils # (A) 0.1 k/uL (0-0.7); Eosinophils % (A) 2 %; HCT 40.2 % (34.0-46.0); HGB 13.3 gm/dL (11.4-16.0); Lymphocytes # (A) 1.4 k/uL (1.0-4.8); Lymphocytes % (A) 25 %; MCH 28.3 pg (25.0-35.0); MCV 85.9 fL (80.0-100.0); Mean Platelet Volume 8.6; Monocytes # (A) 0.4 k/uL (0-1.0); Monocytes % (A) 7 %; Neutrophils # (A) 3.7 k/uL (1.3-7.7); Neutrophils % (A) 64 %; Platelet Count 217 k/uL (150-450); RBC 4.68 m/uL (3.80-5.40); RDW 12.2 % (11.5-15.5); WBC 5.8 k/uL (3.8-10.6)
[2020-04-17 18:13] LABS: Appearance,Urine Clear (Clear); Bilirubin,Urine Negative (Negative); Blood,Urine Negative (Negative); Color,Urine Light Yellow; Glucose,Urine (UA) Negative (Negative); Ketones,Urine Negative (Negative); Leukocyte Esterase,Urine Small (Negative); Mucus,Urine Rare /hpf; Nitrite,Urine Negative (Negative); PH, Urine 6.5 (5.0-8.0); Protein,Urine Negative (Negative); RBC,Urine 1 /hpf (0-5); Specific Gravity,Urine 1.019 (1.001-1.035); Squamous Epithelial Cell,Urine 4 /hpf (0-4); Urobilinogen,Urine <2.0 mg/dL (<2.0); WBC,Urine 1 /hpf (0-5)
[2020-04-17 18:21] LABS: Amphetamine Screen,Urine Not Detected (NotDetected); Barbiturate Screen,Urine Not Detected (NotDetected); Benzodiazepines Screen,Urine Not Detected (NotDetected); Cocaine Screen,Urine Not Detected (NotDetected); Methadone Screen, Urine Not Detected (NotDetected); Opiate Screen,Urine Not Detected (NotDetected); Oxycodone Screen, Urine Not Detected (NotDetected); Phencyclidine Screen,Urine Not Detected (NotDetected); Tricyclic Antidepressant,Urine Not Detected (NotDetected); Urn Cannabinoid Scrn Not Detected (NotDetected)
[2020-04-17 18:24] LABS: ALT 70 U/L (4-34); AST 59 U/L (14-36); African American GFR (CKD) >90 (>60 ml/min/1.73 sqM); Albumin 4.3 g/dL (3.5-5.0); Alkaline Phosphatase 93 U/L (38-126); Anion Gap 8 mmol/L; Blood Urea Nitrogen 15 mg/dL (7-17); Calcium 9.8 mg/dL (8.4-10.2); Carbon Dioxide 25 mmol/L (22-30); Chloride 104 mmol/L (98-107); Glucose 95 mg/dL (74-99); Non-African American GFR(CKD) >90 (>60 ml/min/1.73 sqM); Potassium 4.3 mmol/L (3.5-5.1); Sodium 137 mmol/L (137-145); Total Bilirubin 0.3 mg/dL (0.2-1.3); Total Protein 7.1 g/dL (6.3-8.2)
[2020-04-18] MEDS ORDERED: MAGNESIUM HYDROXIDE 2,400 MG/10 ML CUP PO PRN
[2020-04-18] MEDS ORDERED: MAG HYDROX/AL HYDROX/SIMETH 30 ML CUP PO PRN
[2020-04-18] MEDS ORDERED: LORazepam 1 MG TAB PO PRN
[2020-04-18] MEDS ORDERED: ZIPRASIDONE 20 MG VIAL IM PRN
[2020-04-18] MEDS ORDERED: LORazepam 2 MG/ML INJ IV PRN (00:09)
[2020-04-18] MEDS ORDERED: PRAZOSIN 1 MG CAP PO PRN (00:15)
[2020-04-18] MEDS ORDERED: risperiDONE 1 MG TAB PO SCH (09:00)
[2020-04-18] MEDS: SERTRALINE 100 MG TAB PO SCH (09:12)
[2020-04-18 09:42] LABS: Albumin 4.2 g/dL (3.5-5.0); Bilirubin,Unconjugated 0.3 mg/dL (0.0-1.1); Total Bilirubin 0.3 mg/dL (0.2-1.3)
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
[2020-04-18] MEDS: ACETAMINOPHEN TAB 325 MG TAB PO PRN ×2 (12:58→15:57)
[2020-04-18 19:01] LABS: Hemoglobin A1C 5.2 % (4.0-6.0)
[2020-04-18] MEDS: BENZTROPINE MESYLATE 0.5 MG TAB PO SCH (21:11)
[2020-04-18] MEDS: PRAZOSIN 1 MG CAP PO SCH (21:11)
[2020-04-18] MEDS: risperiDONE 1 MG TAB PO SCH (21:12)
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
[2020-04-19 01:30] VITALS: BP 120/69; PULSE 91; RESP 14; TEMP 97.7
--- NOTE | 2020-04-19 09:31 | US ---
EXAMINATION TYPE: US abdomen limited DATE OF EXAM: 04/19/2020 COMPARISON: NONE CLINICAL HISTORY: RUQ US - abnormal LFTs, abdominal pain. Lower abdominal pain EXAM MEASUREMENTS: Liver Length: 14.6 cm Gallbladder Wall: 0.2 cm CBD: 0.4 cm Right Kidney: 10.6 x 4.0 x 4.8 cm Pancreas: wnl as seen Liver: wnl Gallbladder: No stones seen Evidence for sonographic Christie's sign: No CBD: wnl Right Kidney: No hydronephrosis or masses seen IMPRESSION: 1. No abnormality as visualized.
[2020-04-19] MEDS: SERTRALINE 100 MG TAB PO SCH (09:40)
[2020-04-19] MEDS: BENZTROPINE MESYLATE 0.5 MG TAB PO SCH ×2 (09:40→21:17)
--- NOTE | 2020-04-19 10:09 | P.PN ---
Progress Note - Text Progress Note Date: 04/19/20 I reviewed medical records ,did interview patient and case was discussed in treatment team TODAY VITALS:temp:97.9,P:77,R:20,BP:120/69 SLEPT :6 hours I did review medical consult :(( Abnormal LFTs -Obtain right upper quadrant ultrasound)) Interval History: Patient was laying in bed and agreed to follow me to office ,stated that she does not see any clowns ,no visual hallucination ,no delusional thinking ,no nightmares,stated that she went to [facility] groups "I do not like talking groups",reports that her her c/o of urine incontinence is less with cogentin Mental Status Exam: General Appearance: Patient appears to be stated age is alert, ,cooperative. Patient appears to have improving hygiene and grooming. Behavior: Patient was seating calmly ,no agitation Speech: Patient's speech is spontaneous coherent,limited productivity Mood/Affect: Mood "Better:" affect is constricted Suicidality/Homicidality: denies any suicidal or homicidal ideation Perceptions: denies any hallucintion or delusional thinking Though content/process: tangential ,concrete thinking Memory and concentration: grossly intact Judgment and insight: fair Assessment Schizoaffective disorder ,Intellectual disability Abnormal LFTs Plan: -Patient continues to meet criteria for inpatient psychiatric admission for s ymptom stabilization and safety.Continue Prolixin 1 mg ,Risperdal 3 mg HS ,Cogentin,Zoloft and Prazosin ,encourage participation in groups,SW on board for post-discharge plan.
[2020-04-19] MEDS: risperiDONE 1 MG TAB PO SCH (21:17)
[2020-04-19] MEDS: PRAZOSIN 1 MG CAP PO SCH (21:17)
[2020-04-20] MEDS: SERTRALINE 100 MG TAB PO SCH (07:55)
[2020-04-20] MEDS: BENZTROPINE MESYLATE 0.5 MG TAB PO SCH (07:55)
--- NOTE | 2020-04-20 19:03 | DS ---
DISCHARGE SUMMARY DATE OF SERVICE: 04/17/2020 DATE OF DISCHARGE: 04/20/2020 TOPPER PACKER: Dr. Nathaly Sandoval for history and physical and medical management. DISCHARGE DIAGNOSES: 1. Mood disorder versus bipolar disorder, type 2. 2. History of post-traumatic stress disorder. 3. Intellectual disability. ADMISSION NOTE: The patient is a 24-year-old female with history of intellectual disability who presented to the emergency room with her adoptive parent saying that the patient has been "seeing clowns" and she has been screaming and yelling in the middle of night due to these visual hallucinations or these delusions. The patient also was complaining about side effects of Zyprexa, as it was just added a couple of days ago by [facility] psychiatrist. The patient stated that she has been experiencing galactorrhea and urine incontinence for the last couple of weeks. The patient was a very poor historian, and most of the information was from [facility] records and hospital records. For complete history and physical, please refer to my initial admission note. HOSPITAL COURSE: Upon admission, patient was on Risperdal 1 mg in the morning and 3 mg at bedtime in addition to Zoloft 200 and prazosin at bedtime. The patient was seen by Dr. Sandoval, who stated that the patient has increased liver enzymes, and he did order an abdominal ultrasound. The patient had an abdominal ultrasound on 04/19/2020 and the impression is that no abnormality has been visualized; liver within normal limits; in the gallbladder there is no stone seen. The patient was seen on one-to-one. The patient is very concrete, but she told me that the only medication that helped her in the past was Prolixin, so I did agree with her to transition her from Risperdal to Prolixin to eliminate these visual hallucinations or these delusions. I did start her on Prolixin 1 mg in the morning and I continued Risperdal 3 mg at bedtime and the Zoloft and prazosin the same. I did add Cogentin 0.5 twice a day. The patient came and stated after just one dose of Prolixin, "All the ghosts and the clowns are gone." I did discuss with her that most probably this stay will be a short stay and she will be discharged to [facility]. The patient did agree on April 19. On the morning of April 20 she came back and she did tell me that she did see clowns one time this morning. However, after half an hour she took her 1 mg Prolixin and she came knocking on my door saying that the clown is gone, but she wanted to be sure that it will not happen again. So Prolixin was increased to 1 mg twice a day. The patient has child-like behavior and is attention- seeking. She does need reassurance most of the day. The patient was participating only in group therapy, stated that she does not like "talk groups." Throughout the course of the hospitalization, the patient gradually improved with regard to her mood, her delusions, her sleep and anxiety. On the day of the discharge, she denied any suicidal or homicidal ideation, intent or plan. Denied having any hallucinations. She stated that she is planning to go back to her job on Thursday. She stated that she does not have any side effects from the medication, and even her urinary incontinence has been less than before. MENTAL STATUS EXAMINATION: At the time of the discharge, the patient appears her stated age. She is alert, has child-like behavior but cooperative. There is no agitation. She has fair hygiene and grooming. Speech is nonspontaneous but coherent. She reports that her mood is good. Affect is constricted. She denies having any suicidal or homicidal ideation, intent or plan. She denies any hallucinations. There is no evidence of delusional thought content. Her memory and concentration are grossly intact. Judgment and insight are slightly improved. IMPRESSION: 1. Mood disorder, unspecified, versus bipolar disorder, type 2. 2. History of post-traumatic stress disorder. 3. Intellectual disability. PLAN: The patient will be discharged today, as she is improved and she is not currently an imminent threat to herself or others. Will continue her medications that include Prolixin 1 mg twice a day with Risperdal 3 mg at bedtime, and I do recommend in the future to wean her off Risperdal completely and increase the Prolixin. Continue her on Zoloft 200 mg daily and prazosin at bedtime and Cogentin 0.5 twice a day. The patient was counseled about the need to be compliant with medication and to follow up with [facility] and she did verbalize understanding. The patient will be discharged to [facility] for followup. Also she was instructed to return to the hospital or seek immediate medical care if her symptoms recur. MMODL / IJN: [id number] /
== END 2020-04-20 14:11 | disposition home or self-care (01) | DRG 885 ==
LOC: EC 16:52 → 3MHU 23:35
PROVIDERS: ADMIT Psychiatry & Neurology Psychiatry; ATTEND Psychiatry & Neurology Psychiatry
DX: F39 Unspecified mood [affective] disorder (principal); F79 Unspecified intellectual disabilities; F31.81 Bipolar II disorder; F41.9 Anxiety disorder, unspecified; F43.10 Post-traumatic stress disorder, unspecified; R32 Unspecified urinary incontinence; T43.595A Adverse effect of other antipsychotics and neuroleptics, initial encounter; N64.3 Galactorrhea not associated with childbirth; R51 Headache; R10.9 Unspecified abdominal pain; R94.5 Abnormal results of liver function studies; E66.9 Obesity, unspecified; Z68.30 Body mass index [BMI] 30.0-30.9, adult; Z79.899 Other long term (current) drug therapy; Z91.5 Personal history of self-harm; Z62.810 Personal history of physical and sexual abuse in childhood; Z97.3 Presence of spectacles and contact lenses; Z81.1 Family history of alcohol abuse and dependence; Z81.4 Family history of other substance abuse and dependence
CPT/HCPCS: 36415; 76705; 80053; 80061; 80076; 80306; 81001; 81025; 82075; 83036; 84443; 85025; 99285

== ENCOUNTER 2023-12-17 19:47 | Inpatient (IN) | payer MEDICAID, OTHER ==
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
[2023-12-18] MEDS ORDERED: MAGNESIUM HYDROXIDE 2,400 MG/30 ML CUP PO PRN (01:23)
[2023-12-18] MEDS ORDERED: HALOPERIDOL LACTATE 5 MG/ML 1 ML VIAL IM PRN (01:23)
[2023-12-18] MEDS ORDERED: ACETAMINOPHEN TAB 325 MG TAB PO PRN (01:23)
[2023-12-18] MEDS ORDERED: LORazepam 2 MG/ML INJ IM PRN (01:23)
[2023-12-18] MEDS: LORazepam 1 MG TAB PO PRN (02:17)
[2023-12-18] MEDS: SERTRALINE 100 MG TAB PO SCH (09:51)
[2023-12-18] MEDS: risperiDONE 2 MG TAB PO SCH (09:51)
[2023-12-18 11:40] LABS: Basophils % (A) 1 %; Eosinophils # (A) 0.1 k/uL (0-0.7); Eosinophils % (A) 1 %; HCT 40.3 % (34.0-46.0); HGB 12.9 gm/dL (11.4-16.0); Lymphocytes # (A) 1.4 k/uL (1.0-4.8); Lymphocytes % (A) 26 %; MCH 28.1 pg (25.0-35.0); MCHC 32.1 g/dL (31.0-37.0); MCV 87.5 fL (80.0-100.0); Mean Platelet Volume 9.2; Monocytes # (A) 0.4 k/uL (0-1.0); Monocytes % (A) 8 %; Neutrophils # (A) 3.4 k/uL (1.3-7.7); Neutrophils % (A) 62 %; Platelet Count 203 k/uL (150-450); RBC 4.61 m/uL (3.80-5.40); WBC 5.5 k/uL (3.8-10.6)
[2023-12-18 12:08] LABS: ALT 19 U/L (4-34); AST 22 U/L (14-36); African American GFR (CKD) >90 (>60 ml/min/1.73 sqM); Alkaline Phosphatase 78 U/L (38-126); Anion Gap 5 mmol/L; Bilirubin, Delta 0.2 mg/dL (0.0-0.2); Bilirubin,Unconjugated 0.1 mg/dL (0.0-1.1); Blood Urea Nitrogen 9 mg/dL (7-17); Calcium 9.6 mg/dL (8.4-10.2); Carbon Dioxide 27 mmol/L (22-30); Chloride 105 mmol/L (98-107); Glucose 84 mg/dL (74-99); Non-African American GFR(CKD) >90 (>60 ml/min/1.73 sqM); Potassium 4.4 mmol/L (3.5-5.1); Sodium 137 mmol/L (137-145); Total Bilirubin 0.3 mg/dL (0.2-1.3); Total Protein 6.9 g/dL (6.3-8.2)
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
[2023-12-18] MEDS: haloperidoL 5 MG TAB PO PRN (18:46)
[2023-12-18 21:16] LABS: Chol/HDL Ratio 5.96 Ratio; LDL Cholesterol,Calculated 152.8 mg/dL (0.0-131.0)
[2023-12-18] MEDS: MELATONIN 5 MG TABLET PO ONE (22:06)
[2023-12-19 10:29] LABS: Appearance,Urine Clear (Clear); Bacteria,Urine Rare /hpf; Bilirubin,Urine Negative (Negative); Blood,Urine Negative (Negative); Color,Urine Light Yellow; Glucose,Urine (UA) Negative (Negative); Hyaline Casts,Urine 1 /lpf (0-2); Ketones,Urine Negative (Negative); Leukocyte Esterase,Urine Trace (Negative); Mucus,Urine Moderate /hpf; Nitrite,Urine Negative (Negative); Protein,Urine Negative (Negative); RBC,Urine 1 /hpf (0-5); Specific Gravity,Urine 1.018 (1.001-1.035); Squamous Epithelial Cell,Urine 3 /hpf (0-4); Urobilinogen,Urine <2.0 mg/dL (<2.0); WBC,Urine 4 /hpf (0-5)
[2023-12-19 11:08] LABS: Amphetamine Screen,Urine Not Detected (NotDetected); Barbiturate Screen,Urine Not Detected (NotDetected); Benzodiazepines Screen,Urine Detected (NotDetected); Cocaine Screen,Urine Not Detected (NotDetected); Methadone Screen, Urine Not Detected (NotDetected); Opiate Screen,Urine Not Detected (NotDetected); Oxycodone Screen, Urine Not Detected (NotDetected); Phencyclidine Screen,Urine Not Detected (NotDetected); Tricyclic Antidepressant,Urine Not Detected (NotDetected); Urn Cannabinoid Scrn Not Detected (NotDetected)
--- NOTE | 2023-12-19 12:06 | P.PN ---
Subjective Progress Note Date: 12/19/23 Principal diagnosis: Diagnosis: Schizoaffective Disorder PTSD Mild intellectual deficit Patient Name: Emiliana Cleaning Date of : [birth year] Patient Status: Inpatient Attending Provider: Wil Smith Date: 12/19/23 Initialization Date: 12/18/23 17:21 Active Medications Acetaminophen (Acetaminophen Tab 325 Mg Tab) 650 mg PO Q4HR PRN PRN Reason: Mild Pain (Scale 1 to 3) Al Hydroxide/Mg Hydroxide (Mag Hydrox/Al Hydrox/Simeth 355 Ml Bottle) 30 ml PO Q4HR PRN PRN Reason: GI Upset Haloperidol (Haloperidol 5 Mg Tab) 5 mg PO Q6HR PRN PRN Reason: Agitation Last Admin: 12/18/23 18:46 Dose: 5 mg Haloperidol Lactate (Haloperidol Lactate 5 Mg/Ml 1 Ml Vial) 5 mg IM Q6HR PRN PRN Reason: Severe Agitation Ibuprofen (Ibuprofen 600 Mg Tab) 600 mg PO Q6HR PRN PRN Reason: Moderate Pain (Scale 4 to 6) Lorazepam (Lorazepam 1 Mg Tab) 1 mg PO Q6HR PRN PRN Reason: Anxiety Last Admin: 12/18/23 18:33 Dose: 1 mg Lorazepam (Lorazepam 2 Mg/Ml Inj) 1 mg IM Q6HR PRN PRN Reason: Severe Agitation Magnesium Hydroxide (Magnesium Hydroxide 2,400 Mg/30 Ml Cup) 2,400 mg PO DAILY PRN PRN Reason: Constipation Risperidone (Risperidone 2 Mg Tab) 2 mg PO BID [facility] Last Admin: 12/19/23 09:59 Dose: 2 mg Sertraline HCl (Sertraline 100 Mg Tab) 200 mg PO DAILY [facility] Last Admin: 12/19/23 09:59 Dose: 200 mg subjective data: Patient was seen chart was reviewed and case discussed with the nursing staff Patient was laying comfortably in bed and was easily aroused When asked about how alone she has been here patient said that she's been here for about 2 days She said that she was having auditory and visual hallucinations She said she was seeing things and hearing things like ghosts and clowns and was scared She said that she's been here a lot she states that she needs to have her medication adjusted She said that she currently lives with her parents and is on disability but that she also works part-time as a [employer] Her last admission was to this hospital in 2019. As records she has had several psychiatric hospitalizations in the prior to 2019. she denies any alcohol or substance use or any cannabis use MSE: Alert and attentive. Orientation times three Dressed and Groomed: Appropriately. Pleasant and cooperative. Psychomotor Activity: Normal. Speech: Normal in tone, quality, and quantity. Mood: I feel nervous Affect: Anxious. SI or HI: None. Perceptual disturbance: The patient sees clowns and ghosts. They talk to her say nasty things. She has tactile hallucinations crawling under her skin. Thought Content: No paranoia or other delusional thinking noted. Thought Process: Normal. Cognition: Mild intellectual deficit Judgment and Insight: Fair AIMS: Normal Labs: Available labs reviewed. Diagnosis: Schizoaffective Disorder PTSD Mild intellectual deficit Plan and Recommendations: Continue current Medications. Monitor MS and side effects of medications and adjust medications accordingly. Provide supportive psychotherapy and psychoeducation. The patient to attend duff Milieu. continue current care and support Bola Howe M.D. Objective - Vital Signs Vital signs: Vital Signs Temp 96.8 F L 12/19/23 06:00 Pulse 84 12/19/23 06:00 Resp 16 12/19/23 06:00 BP 112/62 12/19/23 06:00 Pulse Ox 95 12/19/23 06:00 FiO2 - Labs CBC & Chem 7: 12/18/23 11:07 12/18/23 11:07 Labs: Abnormal Lab Results - Last 24 Hours (Table) 12/18/23 12/19/23 Range/Units 11:07 09:52 Triglycerides 193.00 H (0.00-149.00) mg/dL Cholesterol 230.00 H (0.00-200.00) mg/dL LDL Cholesterol, Calc 152.8 H (0.0-131.0) mg/dL HDL Cholesterol 38.60 L (40.00-60.00) mg/dL Ur Leukocyte Esterase Trace H (Negative) Urine Bacteria Rare H (None) /hpf Urine Mucus Moderate H (None) /hpf U Benzodiazepines Scrn Detected H (NotDetected)
[2023-12-19] MEDS: IBUPROFEN 600 MG TAB PO PRN (12:46)
[2023-12-19] MEDS: haloperidoL 5 MG TAB PO PRN (17:41)
[2023-12-19] MEDS: LORazepam 1 MG TAB PO ONE (17:41)
[2023-12-19] MEDS: risperiDONE 2 MG TAB PO SCH (21:11)
[2023-12-19] MEDS: MELATONIN 5 MG TABLET PO ONE (21:38)
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
--- NOTE | 2023-12-20 10:49 | P.PN ---
Subjective Progress Note Date: 12/20/23 Principal diagnosis: Diagnosis: Schizoaffective Disorder PTSD Mild intellectual deficit Patient Name: Emiliana Cleaning Date of : [birth year] Patient Status: Inpatient Attending Provider: Wil Smith Date: 12/20/23 Initialization Date: 12/18/23 17:21 Active Medications Acetaminophen (Acetaminophen Tab 325 Mg Tab) 650 mg PO Q4HR PRN PRN Reason: Mild Pain (Scale 1 to 3) Al Hydroxide/Mg Hydroxide (Mag Hydrox/Al Hydrox/Simeth 355 Ml Bottle) 30 ml PO Q4HR PRN PRN Reason: GI Upset Haloperidol (Haloperidol 5 Mg Tab) 5 mg PO Q6HR PRN PRN Reason: Agitation Last Admin: 12/18/23 18:46 Dose: 5 mg Haloperidol Lactate (Haloperidol Lactate 5 Mg/Ml 1 Ml Vial) 5 mg IM Q6HR PRN PRN Reason: Severe Agitation Ibuprofen (Ibuprofen 600 Mg Tab) 600 mg PO Q6HR PRN PRN Reason: Moderate Pain (Scale 4 to 6) Lorazepam (Lorazepam 1 Mg Tab) 1 mg PO Q6HR PRN PRN Reason: Anxiety Last Admin: 12/18/23 18:33 Dose: 1 mg Lorazepam (Lorazepam 2 Mg/Ml Inj) 1 mg IM Q6HR PRN PRN Reason: Severe Agitation Magnesium Hydroxide (Magnesium Hydroxide 2,400 Mg/30 Ml Cup) 2,400 mg PO DAILY PRN PRN Reason: Constipation Risperidone (Risperidone 2 Mg Tab) 2 mg PO BID [facility] Last Admin: 12/19/23 09:59 Dose: 2 mg Sertraline HCl (Sertraline 100 Mg Tab) 200 mg PO DAILY [facility] Last Admin: 12/19/23 09:59 Dose: 200 mg subjective data: Patient was seen chart was reviewed and case discussed with the nursing staff Patient was laying comfortably in bed and was easily aroused when asked about her behavior the previous day where she was trying to leave patient states that she was too hot in the room and that the air conditioning was finally fixed with a best that she wanted to go somewhere where they do not require When asked about any hallucinations patient said that she had hallucinations yesterday and only one this morning on though she has just woken up Thinking is very concrete Insight into her problem remains poor MSE: Alert and attentive. Orientation times three Dressed and Groomed: Appropriately. Pleasant and cooperative. Psychomotor Activity: Normal. Speech: Normal in tone, quality, and quantity. Mood: I feel nervous Affect: Anxious. SI or HI: None. Perceptual disturbance: The patient sees clowns and ghosts. They talk to her say nasty things. She has tactile hallucinations crawling under her skin. Thought Content: No paranoia or other delusional thinking noted. Thought Process: Normal. Cognition: Mild intellectual deficit Judgment and Insight: Fair AIMS: Normal Labs: Available labs reviewed. Diagnosis: Schizoaffective Disorder PTSD Mild intellectual deficit Plan and Recommendations: Continue current Medications. Monitor MS and side effects of medications and adjust medications accordingly. Provide supportive psychotherapy and psychoeducation. The patient to attend duff Milieu. continue current care and support Bola Howe M.D. Objective - Vital Signs Vital signs: Vital Signs Temp 98.1 F 12/20/23 05:48 Pulse 99 12/20/23 05:48 Resp 16 12/20/23 05:48 BP 122/74 12/20/23 05:48 Pulse Ox 96 12/20/23 05:48 FiO2 Intake & Output 12/19/23 12/20/23 12/20/23 18:59 06:59 18:59 Weight 98.702 kg - Labs CBC & Chem 7: 12/18/23 11:07 12/18/23 11:07 Labs: Abnormal Lab Results - Last 24 Hours (Table) 12/19/23 Range/Units 09:52 U Benzodiazepines Scrn Detected H (NotDetected)
[2023-12-21] MEDS ORDERED: haloperidoL 5 MG TAB PO PRN (12:40)
[2023-12-21] MEDS ORDERED: risperiDONE 2 MG TAB PO SCH (12:43)
[2023-12-21] MEDS: hydrOXYzine pamoate 25 MG CAP PO PRN (19:21)
[2023-12-21] MEDS: risperiDONE 2 MG TAB PO SCH (20:59)
--- NOTE | 2023-12-21 21:42 | P.PN ---
Progress Note - Text Progress Note Date: 12/21/23 In-Patient Follow-up Chief Complaint: I am still seeing Clowns and Ghosts Subjective: The patient noted that she continues to see clown and ghosts. She stated they continue to scare her. She did indicate that she only sees them twice a day for a brief period. She feels that she is improving. The patient reported no side effects of medications. She is attending groups and interacting with staff. Her interaction is limited. The patient denied any side effects from medications. she has been compliant with medications. Leading questions: The patient denied Depression and Anxiety. Denied SI or HI. Denied symptoms consistent with psychosis Sleep and Appetite: Fine. Interim History: Behavioral Changes: PRN meds/isolation/restraints/ change in status: None. Change in medical condition: No change. Change in medications: No change. Side effects from Medications: None. Objective- MSE: Alert and attentive. Orientation times three. Dressed and Groomed: Appropriately. Pleasant and cooperative. Psychomotor Activity: Normal. Speech: Normal in tone, quality, and quantity. Mood: Good. Affect: Anxious. SI or HI: None. Perceptual disturbance: The patient continues to hear ghosts and clowns. Thought Content: She is scared and paranoid of ghosts and clowns. Thought Process: Normal. Cognition: [place]. Judgment and Insight: Poor. AIMS: Normal. Labs: No new labs. Diagnosis: No change. Plan and recommendation: Continue current Medications. Monitor MS and side effects of medications and adjust medications accordingly. Provide supportive psychotherapy. The patient provided psychoeducation. The patient to continue attending the duff activities. Medication Consent with explanation of risk/benefits and side effects: Explained and obtained.
[2023-12-21] MEDS: MELATONIN 5 MG TABLET PO PRN (23:57)
[2023-12-22] MEDS: PRAZOSIN 1 MG CAP PO SCH (20:43)
--- NOTE | 2023-12-22 22:09 | P.PN ---
Progress Note - Text Progress Note Date: 12/22/23 In-Patient Follow-up Chief Complaint: I am doing good Subjective: The patient noted that she is feeling good. She has not had any visions of Ghost and the clown for past two days. She has not experienced bugs crawling under skin. The patient noted she is doing good. She did to be reinstated on Prazosin. The patient noted that she takes 1mg. She noted that she been taking for a longtime for nightmares. The patient has been treatment compliant. Overall, patient showing nice improvement. Leading questions: The patient admitted to mild Depression and Anxiety. Denied SI or HI. Denied symptoms consistent with psychosis Sleep and Appetite: Fine. Interim History: Behavioral Changes: PRN meds/isolation/restraints/ change in status: None. Change in medical condition: No change. Change in medications: No change. Side effects from Medications: None. Objective- MSE: Alert and attentive. Orientation times three. Dressed and Groomed: Appropriately. Pleasant and cooperative. Psychomotor Activity: Normal. Speech: Normal in tone, quality, and quantity. Mood: Good. Affect: Appropriate. SI or HI: None. Perceptual disturbance: None. Thought Content: No paranoia or other delusional thinking noted. Thought Process: Normal. Cognition: Intact Judgment and Insight: Fair. AIMS: Normal. Labs: No new labs. Diagnosis: No change. Plan and recommendation: Continue current Medications. Monitor MS and side effects of medications and adjust medications accordingly. Provide supportive psychotherapy. The patient provided psychoeducation. The patient to continue attending the duff activities. Medication Consent with explanation of risk/benefits and side effects: Explained and obtained
--- NOTE | 2023-12-23 15:32 | P.PN ---
Progress Note - Text Progress Note Date: 12/23/23 In-Patient Follow- Chief Complaint: I thought there was a Boa constrictor in my room Subjective: The patient came out of her room screaming and running. She told the staff that she did it because she saw a Boa constrictor. The patient had displayed a similar behavior yesterday. She was pretty good yester day and fine this morning. She has been compliant with treatment recommendations. Leading questions: The patient mild admitted to Depression and Anxiety. Denied SI or HI. Denied symptoms consistent with psychosis Sleep and Appetite: Fine Interim History: Behavioral Changes: PRN meds/isolation/restraints/ change in status: This afternoon, the patient ran out of room stating that there is Boa Constrictor. She was easily redirectable Change in medical condition: No change. Change in medications: No change. Side effects from Medications: None. Objective- MSE: Alert and attentive. Orientation times three. Dressed and Groomed: Appropriately. Pleasant and cooperative. Psychomotor Activity: Normal. Speech: Normal in tone, quality, and quantity. Mood: Fine. Affect: Appropriate. SI or HI: None. Perceptual disturbance: None. Thought Content: No paranoia or other delusional thinking noted. Thought Process: Normal. Cognition: Intact Judgment and Insight: Fair. AIMS: Normal. Labs: No new labs. Diagnosis: No change. Plan and recommendation: Continue current Medications. Monitor MS and side effects of medications and adjust medications accordingly. Provide supportive psychotherapy. The patient provided psychoeducation. The patient to continue attending the duff activities. Medication Consent with explanation of risk/benefits and side effects: Explained and obtained.
--- NOTE | 2023-12-24 17:31 | P.PN ---
Progress Note - Text Progress Note Date: 12/24/23 In-Patient Follow- Chief Complaint: I am doing good Subjective: The patient was pleasant and expressed no complaints. She has not had any episodes today. Her mother feels that the patient is not ready to come home because she is not interacting with staff or peers and secluding herself. She thinks that patient will relapse if discharged at this time. She had no episode of screaming and running out of her room this afternoon. However, she stayed in her room because one of the patients was excited and arguing with staff at the medical front desk specialist. She has been compliant with treatment recommendations otherwise. Leading questions: The patient mild admitted to Depression and Anxiety. Denied SI or HI. Denied symptoms consistent with psychosis Sleep and Appetite: Fine Interim History: Behavioral Changes: PRN meds/isolation/restraints/ change in status: This afternoon, the patient ran out of room stating that there is Boa Constrictor. She was easily redirectable Change in medical condition: No change. Change in medications: No change. Side effects from Medications: None. Objective- MSE: Alert and attentive. Orientation times three. Dressed and Groomed: Appropriately. Pleasant and cooperative. Psychomotor Activity: Normal. Speech: Normal in tone, quality, and quantity. Mood: Fine. Affect: Appropriate. SI or HI: None. Perceptual disturbance: None. Thought Content: No paranoia or other delusional thinking noted. Thought Process: Normal. Cognition: Intact Judgment and Insight: Fair. AIMS: Normal. Labs: No new labs. Diagnosis: No change. Plan and recommendation: Continue current Medications. Monitor MS and side effects of medications and adjust medications accordingly. Provide supportive psychotherapy. The patient provided psychoeducation. The patient to continue attending the duff activities. Medication Consent with explanation of risk/benefits and side effects: Explained and obtained.
--- NOTE | 2023-12-25 16:59 | P.PN ---
Progress Note - Text Progress Note Date: 12/25/23 Interval history: Patient was seen resting in bed and was directable and agreeable to speak with commercial lines underwriter. Patient reports anxiety over discharge and wants to be prescribed fluphenazine PRN for breakthrough agitation/psychosis. I spoke with mother/guardian on the phone with patient in the room. Patient appears to dissociate and stare straight ahead as I am talking to her mother on the phone about medications. Mother is not sure patient is ready to discharge home yet. Mother reports the Risperdal had been decreased as an outpatient due to breast . We discussed starting Abilify 5 mg daily to minimize risk of breast and mother and patient both consented. Patient denies any breast currently, however she confirms that she had heavy breast previously on Risperdal. Patient prefers to take the Abilify at night since she feels she had heavier breast at night previously. At this time patient denies any suicidal or homicidal ideation, intent or plan. Denies any auditory or visual hallucinations. Patient denies any side effects from the medications and has been compliant with meds. Discussed medications with patient and adoptive mother/guardian. She has required Vistaril 25 mg x 1 today and yesterday for anxiety. Mental status exam: General Appearance: Patient appears to be stated age, dressed in clean clothes [employer] T-shirt and jeans Behavior: No agitated behavior. Patient is anxious, but attempts to cooperate. Still some impulsiveness. Speech: Patient's speech is fluent, loud tone, and non-pressured. Mood/Affect: Mood is anxiety, affect is odd and constricted. Suicidality/Homicidality: Patient denies having any suicidal or homicidal ideation intent or plan. Perceptions: Patient denies any auditory or visual hallucinations. Though content/process: There is no evidence of any delusional thought content and thought process is linear and goal-directed. Memory and concentration: AOX3, grossly intact for the purposes of this session Judgment and insight: Improving mildly Assessment/Plan: Continue with current diagnosis. Patient continues to meet criteria for inpatient psychiatric admission for symptom stabilization and safety. Start Abilify 5 mg daily due to history Risperidone-related galactorrhea. Start Prolixin 1 mg BID PRN for psychosis/agitation. Monitor for medication compliance and for any psychotropic medication side effects. Will continue to monitor ongoing response to treatment. Encouraged participation in milieu.
[2023-12-25] MEDS: ARIPiprazole 5 MG TAB PO SCH (20:57)
--- NOTE | 2023-12-26 19:26 | P.PN ---
Progress Note - Text Progress Note Date: 12/26/23 Interval history: Patient was seen socializing in the hallway with peers before mealtime and was agreeable to speak with proposal writer. Patient reports good mood, sleep and appetite. She is tolerating the addition of Abilify well, denies side effects. She continues to deny breast currently. At this time patient denies any suicidal or homicidal ideation, intent or plan. Denies any auditory or visual hallucinations. Patient denies any side effects from the medications and has been compliant with meds. She has not required the Fluphenazine 1 mg BID PRN. Mental status exam: General Appearance: Patient appears to be stated age, dressed in clean clothes, obese, showered Behavior: No agitated behavior. Patient is calm, attempts to cooperate, polite, somewhat childlike. Speech: Patient's speech is fluent, loud tone, and non-pressured. Mood/Affect: Mood is better, affect is congruent and constricted. Suicidality/Homicidality: Patient denies having any suicidal or homicidal ideation intent or plan. Perceptions: Patient denies any auditory or visual hallucinations. Though content/process: There is no evidence of any delusional thought content and thought process is generally linear and goal-directed. Memory and concentration: AOX3, grossly intact for the purposes of this session Judgment and insight: Improving mildly Assessment/Plan: Continue with current diagnosis. Patient continues to meet criteria for inpatient psychiatric admission for symptom stabilization and safety. Continue Abilify 5 mg daily due to history of Risperidone-related galactorrhea. Prolixin 1 mg BID PRN for psychosis/agitation is ordered based on patient preference but has not been utilized. Will discuss this again with mother prior to discharge and will likely switch it to Risperdal 1 mg BID PRN for breakthrough agitation since there is no indication for a third antipsychotic at this time. Monitor for medication compliance and for any psychotropic medication side effects. Will continue to monitor ongoing response to treatment. Encouraged participation in milieu.
--- NOTE | 2023-12-27 18:32 | P.PN ---
Progress Note - Text Progress Note Date: 12/27/23 Interval history: Patient was seen socializing in the hallway with peers before mealtime and was agreeable to speak with lead technical writer. Patient reports good mood, sleep and appetite. She is tolerating the addition of Abilify well, denies side effects. She continues to deny breast currently. At this time patient denies any suicidal or homicidal ideation, intent or plan. Denies any auditory or visual hallucinations. Patient denies any side effects from the medications and has been compliant with meds. She has not required the Fluphenazine 1 mg BID PRN. She is wondering about her discharge date, is unsure if parents will think she is ready to go home. She is hopeful for discharge early this week. Mental status exam: General Appearance: Patient appears to be stated age, dressed in clean clothes, obese, showered Behavior: No agitated behavior. Patient is calm, attempts to cooperate, polite, somewhat childlike. Speech: Patient's speech is fluent, loud tone, and non-pressured. Mood/Affect: Mood is better, affect is congruent and constricted. Suicidality/Homicidality: Patient denies having any suicidal or homicidal ideation intent or plan. Perceptions: Patient denies any auditory or visual hallucinations. Though content/process: There is no evidence of any delusional thought content and thought process is generally linear and goal-directed. Memory and concentration: AOX3, grossly intact for the purposes of this session Judgment and insight: Improving mildly Assessment/Plan: Continue with current diagnosis. Patient continues to meet criteria for inpatient psychiatric admission for symptom stabilization and safety. Continue Abilify 5 mg daily due to history of Risperidone-related galactorrhea. Continue Risperdal 4 mg BID for psychosis/mood. Prolixin 1 mg BID PRN for psychosis/agitation is ordered based on patient preference but has not been utilized. Will discuss this again with mother prior to discharge and will likely switch it to Risperdal 1 mg BID PRN for breakthrough agitation since there is no indication for a third antipsychotic at this time. Monitor for medication compliance and for any psychotropic medication side effects. Will continue to monitor ongoing response to treatment. Encouraged participation in milieu.
[2023-12-28 07:04] VITALS: RESP 18
[2023-12-28] MEDS: MAG HYDROX/AL HYDROX/SIMETH 355 ML BOTTLE PO PRN (10:50)
--- NOTE | 2023-12-28 11:50 | P.PN ---
Progress Note - Text Progress Note Date: 12/28/23 Interval history: Patient was seen resting in her room and was agreeable to speak with health technical writer. Patient reports good mood, sleep and appetite. She is tolerating the addition of Abilify well, denies side effects. She continues to deny breast currently. At this time patient denies any suicidal or homicidal ideation, intent or plan. Denies any auditory or visual hallucinations. Patient denies any side effects from the medications and has been compliant with meds. She has not required the Fluphenazine 1 mg BID PRN. She inquires about her discharge again. We called her mother together to discuss discharge plans. Mother did not raise any concerns regarding possible discharge tomorrow. We discussed patient has not needed the Fluphenazine 1 mg BID PRN and that there is no indication for a third antipsychotic so I will discontinue the PRN fluphenazine and instead start Risperdal 1 mg BID PRN for breakthrough agitation/psychosis to use at home. Mother and patient agree with this plan. Patient has been calm, social on the unit, interacts well with staff and peers. Mental status exam: General Appearance: Patient appears to be stated age, dressed in clean clothes, obese, showered Behavior: No agitated behavior. Patient is calm, attempts to cooperate, polite, somewhat childlike. Speech: Patient's speech is fluent, loud tone at homes, and non-pressured. Mood/Affect: Mood is good, affect is congruent. Suicidality/Homicidality: Patient denies having any suicidal or homicidal ideation intent or plan. Perceptions: Patient denies any auditory or visual hallucinations. Though content/process: There is no evidence of any delusional thought content and thought process is generally linear and goal-directed. Memory and concentration: AOX3, grossly intact for the purposes of this session Judgment and insight: Improving mildly Assessment/Plan: Continue with current diagnosis. Patient continues to meet criteria for inpatient psychiatric admission for symptom stabilization and safety. Continue Abilify 5 mg daily due to history of Risperidone-related galactorrhea. Continue Risperdal 4 mg BID for psychosis/mood. Continue Prazosin 1 mg QHS for nightmares and Zoloft 200 mg daily for depression/anxiety. Discontinue Fluphenazine 1 mg BID PRN for psychosis/agitation since she has not required it and there is no indication for a third antipsychotic. Will order Risperdal 1 mg BID PRN for breakthrough agitation to use at home if needed. Monitor for medication compliance and for any psychotropic medication side effects. Will continue to monitor ongoing response to treatment. Encouraged participation in milieu. Consider discharge tomorrow if continues to stabilize.
--- NOTE | 2023-12-29 14:55 | P.PN ---
Progress Note - Text Progress Note Date: 12/29/23 Follow-up Mediation Review Chief Complaint: I feel fine. Subjective: The patient had no new complaints. She denied any episode of running in the hallway. The patient was started on Abilify over the weekend because of fear of Galactorrhea due to Risperdal. The patient had this side effect in the past. The patient is vehemently opposed to taking Abilify because she experienced weight gain and severe constipation on Abilify in the past. The patient was opposed to getting off Risperdal. She feared hallucinating of scary objects. She noted that this medication worked the best. Explained patient that Prolactin level will be obtained to assess the galactorrhea and medications will be adjusted accordingly. The patient was upset but settled down after gentle redirection. The patient has been attending the groups. The participation is good. The interaction with staff and peers is good. The patient is compliant with treatment recommendations. Leading questions: The patient admitted to mild Depression and Anxiety. Denied SI or HI. Denied symptoms consistent with psychosis Sleep and Appetite: Good. Change in family/ living/job/financial/daily routine: No change. Change in medical condition: No change. Change in medications: No change. Side effects from Medications: None. Objective- MSE: Alert and attentive. Orientation times three. Dressed and Groomed: Appropriately. Pleasant and cooperative. Psychomotor Activity: Normal. Speech: Normal in tone, quality and quantity. Mood: Angry and upset. Affect: Appropriated to the mood. SI or HI: None. Perceptual disturbance: None. Thought Content: No paranoia or other delusional thinking noted. Thought Process: Normal. Cognition: Intact Judgment and Insight: Fair. AIMS: Normal. Labs: Prolactin level ordered. Diagnosis: Plan and Recommendations: Continue current Medications. Monitor MS and side effects of medications and adjust medications accordingly. Provide supportive psychotherapy. The patient provided psychoeducation and advised The patient to attend duff activities. Medication Consent with explanation of risk/benefits and side effects: Explained and obtained.
[2023-12-29] MEDS: risperiDONE 1 MG TAB PO PRN (15:42)
[2023-12-29] MEDS: risperiDONE 2 MG TAB PO SCH (21:41)
[2023-12-30 02:33] VITALS: BP 138/74; PULSE 108; TEMP 97.6
[2023-12-30] MEDS: risperiDONE 2 MG TAB PO SCH (08:34)
--- NOTE | 2023-12-30 16:54 | P.DS ---
Providers Date of admission: 12/18/23 01:08 Expected date of discharge: 12/30/23 Attending physician: Wil Smith MD Consults: 12/18/23 01:23 Consult Physician Routine Consulting Provider: José Aldrich Consult Reason/Comments: For H & P for Medical Follow Up Do you want consulting provider notified?: Yes Primary care physician: Carina Pereyra - Discharge Diagnosis(es) (1) Schizoaffective disorder with good prognostic features Status: Acute Priority: High (2) PTSD (post-traumatic stress disorder) Status: Acute Priority: Medium (3) Mild intellectual disability Status: Acute Priority: Low Hospital Course: Discharge Summary HPI: Identifying Data: Ms. Jang, is 28 years old, single, wf, who lives with her parents, in [place], [place] Chief Complaint: I see clown and ghosts History of Psychiatric Illness- The patients parents brought to the hospital because, the patient was declining and was hallucinating. In the ER she was noted to be agitated and screaming. The patient noted that she has been seeing ghosts and clowns for past few weeks. She noted they a re scary. She noted that she was seeing them occasionally but recently the have got worse. They talk to her too. She is also experiencing bugs crawling under her skin. She has no other complaints. She denied being depressed or anxious. The patient has been admitted to the hospital with similar complaints in the past. Her last admission was to this hospital in 2019. As records she has had several psychiatric hospitalizations in the prior to 2019. She is currently taking Risperdal 2 mg, Prolixin 1mg twice a day, Prazosin 1 mg as needed and Zoloft 200 mg Past Psychiatric History: The patient has h/o multiple psychiatric hospitalizations. The patient noted that she has been hospitalized to [facility]. Leading questions: The patient denied being depressed or anxious. Denied SI or HI. Denied symptoms consistent with psychosis Drugs and alcohol history: None. Tobacco use: None. Hospital Course: After admission, the patient was involved in pharmacotherapy, duff milieu, and individual psychodynamic psychotherapy. The patient was started Risperdal, Prazosin, and Zoloft. Initially she was resumed on her home medications and then the dose of Risperdal was titrated. Abilify was added too to reduce the dose of Risperdal due prevent Galactorrhea. Her Prolactin was mildly high to 146. The patient mother, who is her guardian, was informed, as well as the patient. The guardian and the patient both did not want her off Risperdal because of the benefit from this medication. The dose was titrated to obtain the desire effects. The patient tolerated medications well without any side effects. The patient was also involved in duff activities. The patient attended the groups and participated well. The patient interacted with peers and staff well. The patient slowly started showing improvement. The hospital course was uneventful. The patient symptoms of depression, suicidal and homicidal ideations abated. The psychosis improved. The patient was stable to be discharged to out-patient care. The patient did not have any guns or weapons in possession at home. MSE: Alert and attentive. Orientation times three Dressed and Groomed: Appropriately. Pleasant and cooperative. Psychomotor Activity: Normal. Speech: Normal in tone, quality, and quantity. Mood: I feel fine Affect: Anxious. SI or HI: None. Perceptual disturbance: The patient sees clowns and ghosts. They talk to her say nasty things. She has tactile hallucinations crawling under her skin. Thought Content: No paranoia or other delusional thinking noted. Thought Process: Normal. Cognition: Mild intellectual deficit Judgment and Insight: Fair AIMS: Normal Diagnosis: Schizoaffective Disorder with good prognosis PTSD Mild intellectual impairment. Plan: The patient to be discharged today. The patient has attained good improvement since admission. He is stable to be followed as an outpatient. The patient is not suicidal or Homicidal. He does not pose any harm to self or others. The patient remains at a greater risk of self-harm or harm to others than general population on a chronic basis due to psychiatric illness and substance abuse. The patient will continue taking following medication post discharge. The importance of medication compliance and maintaining regular appointments at psychiatric out-pt and PCP clinic was explained and encouraged.The understood and agreed with the recommendations. b and b gang worker to arrange for and conduct family meeting to ensure safety upon discharge and answer any questions. The clinical social worker to arrange for patients follow-up appointments at [facility] for psychiatric care along with follow-up with PCP. The patient provided psychoeducation. Advised to call 911 or go to nearest ED or call this hospital in case of acute worsening of symptomatology, severe side effects or having suicidal, homicidal thoughts and feeling unsafe at home. Patient Condition at Discharge: Stable Plan - Discharge Summary Discharge Rx Participant: Yes New Discharge Prescriptions: New Prazosin [Minipress] 1 mg PO HS 15 Days #15 cap risperiDONE [RisperDAL] 1 mg PO DAILY 15 Days #15 tab hydrOXYzine pamoate [Vistaril] 25 mg PO TID 15 Days #45 cap Sertraline [Zoloft] 200 mg PO DAILY 15 Days #15 tab risperiDONE [RisperDAL] 3 mg PO HS 15 Days #15 tab Continue Benztropine Mesylate [Cogentin] 0.5 mg PO BID 30 Days tab fluPHENAZine [Prolixin] 1 mg PO BID 30 Days tab Discontinued risperiDONE [RisperDAL] 3 mg PO HS 30 Days tab Prazosin [Minipress] 1 mg PO HS PRN 30 Days cap PRN Reason: nightmares Sertraline [Zoloft] 200 mg PO DAILY 30 Days tab Discharge Medication List Benztropine Mesylate [Cogentin] 0.5 mg PO BID 30 Days tab 04/20/20 [Rx] fluPHENAZine [Prolixin] 1 mg PO BID 30 Days tab 04/20/20 [Rx] Prazosin [Minipress] 1 mg PO HS 15 Days #15 cap 12/30/23 [Rx] Sertraline [Zoloft] 200 mg PO DAILY 15 Days #15 tab 12/30/23 [Rx] hydrOXYzine pamoate [Vistaril] 25 mg PO TID 15 Days #45 cap 12/30/23 [Rx] risperiDONE [RisperDAL] 1 mg PO DAILY 15 Days #15 tab 12/30/23 [Rx] risperiDONE [RisperDAL] 3 mg PO HS 15 Days #15 tab 12/30/23 [Rx] Follow up Appointment(s)/Referral(s): [facility] [Outside] - 01/01/24 1:00 pm (01/01/2024 1:00PM - 2:00PM PAWAN VELARDE 01/05/2024 1:30PM - 2:00PM SHI SAMAYOA ) Carina Pereyra MD [Primary Care Provider] - 1-2 days Patient Instructions/Handouts: Schizoaffective Disorder (DC), Post Traumatic Stress Disorder (GEN) Activity/Diet/Wound Care/Special Instructions: Avoid the use of street drugs and alcohol. Take all medications as prescribed. When you are in need of refills on your medications, please contact your medical provider and/or outpatient psychiatrist/provider to have this done. Please go to your scheduled outpatient appointment for aftercare treatment. If symptoms return or become worse, call the crisis line at and/or go to the nearest emergency room for evaluation. National Suicide Hotline 988 Discharge Disposition: HOME SELF-CARE
[2023-12-30] MEDS ORDERED: risperiDONE 1 MG TAB PO SCH (21:00)
== END 2023-12-30 12:20 | disposition home or self-care (01) | DRG 750 ==
LOC: EC 19:47 → 3MHU 12-18 01:08
PROVIDERS: ADMIT Psychiatry & Neurology Psychiatry; ATTEND Psychiatry & Neurology Psychiatry
DX: F25.9 Schizoaffective disorder, unspecified (principal); F84.0 Autistic disorder; F70 Mild intellectual disabilities; F43.10 Post-traumatic stress disorder, unspecified; F31.9 Bipolar disorder, unspecified; F41.0 Panic disorder [episodic paroxysmal anxiety]; R45.1 Restlessness and agitation; E78.5 Hyperlipidemia, unspecified; Z79.899 Other long term (current) drug therapy; Z63.72 Alcoholism and drug addiction in family; Z11.52 Encounter for screening for COVID-19
CPT/HCPCS: 80053; 80061; 80164; 80306; 81001; 81025; 82248; 83036; 84146; 84443; 85025; 87635; 99285

== ENCOUNTER 2024-01-01 20:04 | Inpatient (IN) | payer MEDICAID, OTHER ==
[2024-01-01 21:31] LABS: Appearance,Urine Clear (Clear); Bilirubin,Urine Negative (Negative); Blood,Urine Moderate (Negative); Color,Urine Colorless; Glucose,Urine (UA) Negative (Negative); Ketones,Urine Negative (Negative); Leukocyte Esterase,Urine Negative (Negative); Mucus,Urine Rare /hpf; Nitrite,Urine Negative (Negative); PH, Urine 6.5 (5.0-8.0); Protein,Urine Negative (Negative); RBC,Urine 118 /hpf (0-5); Specific Gravity,Urine 1.014 (1.001-1.035); Squamous Epithelial Cell,Urine <1 /hpf (0-4); Urobilinogen,Urine <2.0 mg/dL (<2.0); WBC,Urine <1 /hpf (0-5)
[2024-01-01 21:43] LABS: Amphetamine Screen,Urine Not Detected (NotDetected); Barbiturate Screen,Urine Not Detected (NotDetected); Benzodiazepines Screen,Urine Not Detected (NotDetected); Cocaine Screen,Urine Not Detected (NotDetected); Methadone Screen, Urine Not Detected (NotDetected); Opiate Screen,Urine Not Detected (NotDetected); Oxycodone Screen, Urine Not Detected (NotDetected); Phencyclidine Screen,Urine Not Detected (NotDetected); Tricyclic Antidepressant,Urine Not Detected (NotDetected); Urn Cannabinoid Scrn Not Detected (NotDetected)
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
[2024-01-02] MEDS ORDERED: LORazepam 2 MG/ML INJ IM PRN (06:10)
[2024-01-02] MEDS ORDERED: HALOPERIDOL LACTATE 5 MG/ML 1 ML VIAL IM PRN (06:10)
[2024-01-02] MEDS ORDERED: MAG HYDROX/AL HYDROX/SIMETH 355 ML BOTTLE PO PRN (06:10)
[2024-01-02] MEDS: BENZTROPINE MESYLATE 0.5 MG TAB PO SCH (08:45)
[2024-01-02] MEDS: hydrOXYzine pamoate 25 MG CAP PO SCH (08:45)
[2024-01-02] MEDS: risperiDONE 2 MG TAB PO SCH (08:45)
[2024-01-02] MEDS: SERTRALINE 100 MG TAB PO SCH (08:46)
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
[2024-01-02] MEDS: haloperidoL 5 MG TAB PO PRN (17:23)
[2024-01-02] MEDS: risperiDONE 1 MG TAB PO SCH (21:27)
[2024-01-02] MEDS: PRAZOSIN 1 MG CAP PO SCH (21:27)
[2024-01-02] MEDS: MELATONIN 5 MG TABLET PO SCH (21:50)
--- NOTE | 2024-01-03 02:40 | P.PN ---
Progress Note - Text Progress Note Date: 01/03/24 Attempted to see the patient in the mental health unit at 2300 on 01/01. The patient refused to be seen or be evaluated.
--- NOTE | 2024-01-03 08:29 | P.PN ---
Subjective Progress Note Date: 01/03/24 Principal diagnosis: IMPRESSIONS: Schizoaffective disorder unspecified Patient Name: Emiliana Cleaning Date of : 89 Patient Status: Inpatient Attending Provider: Wil Smith Date: 01/03/24 Initialization Date: 01/02/24 11:54 Subjective data: The patient was seen and chart was reviewed and case discussed with nursing staff Patient was laying in bed and seemed to be unmotivated for this interview Affect at this time remains flat Patient states that she is feeling somewhat better and the voices have decreased in intensity She states that she is not having any suicidal thoughts She states that she feels that she is improving General Appearance: Patient appears to be stated age is alert, directable, and attempts to cooperate. Patient appears to have good hygiene and grooming. Dressed in his own clothes, Behavior: Patient is seated without any agitated behavior. Speech: Patient's speech is fluent and nonpressured. soft tone of voice Mood/Affect: Patient reports their mood is depressed, affect is congruent and constricted. flat. Suicidality/Homicidality: Patient denies having any homicidal ideation intent or plan. Denies any suicidal ideations intent or plan Perceptions: Patient denies any visual hallucinations and denies any auditory hallucinations at this time but states that the auditory hallucinations are intermittent Though content/process: There is no evidence of any delusional thought content and thought process is linear and goal-directed. concrete. Memory and concentration: AOX3, grossly intact for the purposes of this session. Judgment and insight: [place] has some insight IMPRESSIONS: Schizoaffective disorder unspecified PLAN: -Patient is admitted under voluntary status to MHU for stabilization of psychiatric symptoms and safety. Patient has signed adult voluntary form and medication consent and is placed in patient's chart. -Medications : We will continue her current home medications that includes Resporal 4 mg daily Zoloft 200 mg daily Prazosin 1 mg at bedtime Trazodone 50 mg at bedtime as needed -Ativan and Haldol PRN for agitation/aggression -NRT -nicotine patch -SW on board for discharge planning. Encourage patient to participate in groups to work on coping skills. Likely discharge Thursday, if patient continues to improve. CONI ZHANG MD Objective - Vital Signs Vital signs: Vital Signs Temp 97.3 F L 01/02/24 06:57 Pulse 136 H 01/02/24 06:57 Resp 16 01/02/24 06:57 BP 120/79 01/02/24 06:57 Pulse Ox 97 01/02/24 06:57 FiO2
[2024-01-03] MEDS: IBUPROFEN 600 MG TAB PO PRN (16:18)
--- NOTE | 2024-01-04 03:25 | P.PN ---
Progress Note - Text Progress Note Date: 01/04/24 Attempted to see the patient in the mental health unit at 2200 on 01/02. The patient refused to be seen or be evaluated
--- NOTE | 2024-01-04 17:10 | P.PN ---
Progress Note - Text Progress Note Date: 01/04/24 Follow-up Mediation Review Chief Complaint: I fear Ghosts and clowns Subjective: The patient noted that she is afraid of ghosts and clowns. The patient is very focused on leaving the hospital. The noted that she gets very anxious. She stated that Hydroxyzine helps her. She slept fine last night. The patient has been attending the groups. The participation is good. The interaction with staff and peers is limited good. The patient compliant with treatment recommendations. Leading questions: The patient admitted to Depression and Anxiety. Denied SI or HI. Admits to symptoms consistent with psychosis Sleep and Appetite: Fair. Change in family/ living/job/financial/daily routine: No change. Change in medical condition: No change. Change in medications: No change. Side effects from Medications: None. Allergies: No change. Objective- MSE: Alert and attentive. Orientation times three. Dressed and Groomed: Appropriately. Pleasant and cooperative. Psychomotor Activity: Normal. Speech: Normal in tone, quality, and quantity. Mood: Anxious and depressed. Affect: Consistent with mood. SI or HI: None. Perceptual disturbance: Seeing Ghosta and Clowns. Thought Content: No paranoia or other delusional thinking noted. Thought Process: Normal. Cognition: Intact Judgment and Insight: Poor. AIMS: Normal. Labs: No new labs ordered.. Diagnosis: Schizoaffective Disorder Plan and Recommendations: Continue current Medications. Monitor MS and side effects of medications and adjust medications accordingly. Provide supportive psychotherapy. The patient provided psychoeducation and advised The patient to attend duff activities. Medication Consent with explanation of risk/benefits and side effects: Explained and obtained.
[2024-01-04] MEDS: risperiDONE 1 MG TAB PO SCH (21:56)
[2024-01-04] MEDS: traZODone HCL 50 MG TAB PO PRN (21:59)
[2024-01-05] MEDS: OLANZapine 2.5 MG TAB PO SCH (08:58)
--- NOTE | 2024-01-05 16:38 | P.PN ---
Progress Note - Text Progress Note Date: 01/05/24 Follow-up Mediation Review Chief Complaint: I feeling better Subjective: The patient noted that she was seeing bugs last evening. She was given Haldol, which helped her a little bit. She noted that there was somebody with her to help her calm down. The patients Risperdal to be decreased to 1 mg at bedtime. Zyprexa to be increased to 7.5 mg. The patient has been attending the groups but did not go today because she was too tired. The participation is good. The interaction with staff and peers is good. The patient is compliant with treatment recommendations. Leading questions: The patient admitted to Depression and Anxiety. Denied SI or HI. Admits to seeing clowns, ghosts and bugs. She saw bugs yesterday. No other symptoms of psychosis. Sleep and Appetite: Ok. Change in family/ living/job/financial/daily routine: No change. Change in medical condition: No change. Change in medications: Cross titration between Risperdal and Zyprexa. Side effects from Medications: None. Allergies: No change. Objective- MSE: Alert and attentive. Orientation times three. Dressed and Groomed: Appropriately. Pleasant and cooperative. Psychomotor Activity: Normal. Speech: Normal in tone, quality, and quantity. Mood: Depressed and mood. Affect: Appropriate to the mood. SI or HI: None. Perceptual disturbance: None. Thought Content: No paranoia or other delusional thinking noted. Thought Process: Normal. Cognition: Intact Judgment and Insight: Poor. AIMS: Normal. Labs: No new labs. Diagnosis: No change. Plan and Recommendations: Continue current Medications. Monitor MS and side effects of medications and adjust medications accordingly. Provide supportive psychotherapy. The patient provided psychoeducation and advised The patient to attend duff activities. Medication Consent with explanation of risk/benefits and side effects: Explained and obtained.
[2024-01-05] MEDS: risperiDONE 1 MG TAB PO SCH (20:43)
[2024-01-05] MEDS: OLANZapine 7.5 MG TAB PO SCH (20:43)
--- NOTE | 2024-01-06 13:36 | P.PN ---
Progress Note - Text Progress Note Date: 01/06/24 Follow-up Mediation Review Chief Complaint: I feeling the same Subjective: The patient had no hallucinations yesterday. She complaint of being tired, amotivated, social isolation, staying in her room and no desire to attend group. She is not feeling tired but has been sleeping more than usual. The patient has not attended the group today. The interaction with staff and peers is adequate.. The patient is compliant with medications. Leading questions: The patient admitted to Depression and Anxiety. Denied SI or HI. Denied hallucinations or delusions since yesterday. Sleep and Appetite: Ok. Change in family/ living/job/financial/daily routine: No change. Change in medical condition: No change. Change in medications: Cross titration between Risperdal and Zyprexa. Side effects from Medications: None. Allergies: No change. Objective- MSE: Alert and attentive. Orientation times three. Dressed and Groomed: Appropriately. Pleasant and cooperative. Psychomotor Activity: Normal. Speech: Normal in tone, quality, and quantity. Mood: Depressed and anxious. Affect: Appropriate to the mood. SI or HI: None. Perceptual disturbance: None. Thought Content: No paranoia or other delusional thinking noted. Thought Process: Normal. Cognition: Intact Judgment and Insight: Poor. AIMS: Normal. Labs: No new labs. Diagnosis: No change. Plan and Recommendations: Continue current Medications. Monitor MS and side effects of medications and adjust medications accordingly. Provide supportive psychotherapy. The patient provided psychoeducation and advised The patient to attend duff activities. Medication Consent with explanation of risk/benefits and side effects: Explained and obtained.
[2024-01-06] MEDS: MAGNESIUM HYDROXIDE 2,400 MG/30 ML CUP PO PRN (15:14)
[2024-01-06] MEDS: LACTULOSE 20 GM/30 ML CUP PO SCH (17:51)
--- NOTE | 2024-01-07 15:20 | P.PN ---
Progress Note - Text Progress Note Date: 01/07/24 Follow-up Mediation Review Chief Complaint: I feeling better Subjective: The patient had no hallucinations yesterday. She noted going to the group. She is slightly better. The patient is feeling less tired than before. The patient has attended the group today. The interaction with staff and peers is adequate. The patient is compliant with medications. Leading questions: The patient admitted to Depression and Anxiety. Denied SI or HI. Denied hallucinations or delusions since yesterday. Sleep and Appetite: Ok. Change in family/ living/job/financial/daily routine: No change. Change in medical condition: No change. Change in medications: Cross titration between Risperdal and Zyprexa. Side effects from Medications: None. Allergies: No change. Objective- MSE: Alert and attentive. Orientation times three. Dressed and Groomed: Appropriately. Pleasant and cooperative. Psychomotor Activity: Normal. Speech: Normal in tone, quality, and quantity. Mood: Depressed and anxious. Affect: Appropriate to the mood. SI or HI: None. Perceptual disturbance: None. Thought Content: No paranoia or other delusional thinking noted. Thought Process: Normal. Cognition: Intact Judgment and Insight: Poor. AIMS: Normal. Labs: No new labs. Diagnosis: No change. Plan and Recommendations: Continue current Medications. D/C Risperdal. Monitor MS and side effects of medications and adjust medications accordingly. Provide supportive psychotherapy. The patient provided psychoeducation and advised The patient to attend duff activities. Medication Consent with explanation of risk/benefits and side effects: Explained and obtained.
[2024-01-07] MEDS: risperiDONE 0.5 MG TAB PO SCH (20:35)
--- NOTE | 2024-01-08 12:09 | P.PN ---
Progress Note - Text Progress Note Date: 01/08/24 Follow-up Mediation Review Chief Complaint: I am good Subjective: The patient had no hallucinations since yesterday. She has attending groups. She is not feeling sedated anymore. She visible on the unit. The patient is showing improvement. The patient is attending the groups today. Her participation in groups is good. The interaction with staff and peers is good.. The patient is compliant with medications. Leading questions: The patient admitted to Depression and Anxiety. Denied SI or HI. Denied hallucinations or delusions since yesterday. Sleep and Appetite: Ok. Change in family/ living/job/financial/daily routine: No change. Change in medical condition: No change. Change in medications: Risperdal is d/c. Side effects from Medications: None. Allergies: No change. Objective- MSE: Alert and attentive. Orientation times three. Dressed and Groomed: Appropriately. Pleasant and cooperative. Psychomotor Activity: Normal. Speech: Normal in tone, quality, and quantity. Mood: Depressed and anxious. Affect: Appropriate to the mood. SI or HI: None. Perceptual disturbance: None. Thought Content: No paranoia or other delusional thinking noted. Thought Process: Normal. Cognition: Intact Judgment and Insight: Poor. AIMS: Normal. Labs: No new labs. Diagnosis: No change. Plan and Recommendations: Continue current Medications. D/C Risperdal. Monitor MS and side effects of medications and adjust medications accordingly. Provide supportive psychotherapy. The patient provided psychoeducation and advised The patient to attend duff activities. Medication Consent with explanation of risk/benefits and side effects: Explained and obtained.
--- NOTE | 2024-01-09 08:06 | P.PN ---
Subjective Progress Note Date: 01/09/24 Principal diagnosis: IMPRESSIONS: Schizoaffective disorder unspecified Patient Name: Emiliana Cleaning Date of : 89 Patient Status: Inpatient Attending Provider: Wil Smith Date: 01/09/24 Initialization Date: 01/02/24 11:54 Subjective data: The patient was seen and chart was reviewed and case discussed with nursing staff Patient was laying in bed and seemed to be unmotivated for this interview Affect at this time remains flat Patient states that she is feeling somewhat better and the voices have decreased in intensity She states that she is not having any suicidal thoughts She states that she feels that she is improving The patient is attending the groups today. Her participation in groups is good. The interaction with staff and peers is good.. The patient is compliant with medications. General Appearance: Patient appears to be stated age is alert, directable, and attempts to cooperate. Patient appears to have good hygiene and grooming. Dressed in his own clothes, Behavior: Patient is seated without any agitated behavior. Speech: Patient's speech is fluent and nonpressured. soft tone of voice Mood/Affect: Patient reports their mood is depressed, affect is congruent and constricted. flat. Suicidality/Homicidality: Patient denies having any homicidal ideation intent or plan. Denies any suicidal ideations intent or plan Perceptions: Patient denies any visual hallucinations and denies any auditory hallucinations at this time but states that the auditory hallucinations are intermittent Though content/process: There is no evidence of any delusional thought content and thought process is linear and goal-directed. concrete. Memory and concentration: AOX3, grossly intact for the purposes of this session. Judgment and insight: [place] has some insight IMPRESSIONS: Schizoaffective disorder unspecified PLAN: -Patient is admitted under voluntary status to [facility]HU for stabilization of psychiatric symptoms and safety. Patient has signed adult voluntary form and medication consent and is placed in patient's chart. -Medications : We will continue her current home medications that includes Risperdal has been discontinued and patient is now on Zyprexa 7.5 mg daily Zoloft 200 mg daily Prazosin 1 mg at bedtime Trazodone 50 mg at bedtime as needed -Ativan and Haldol PRN for agitation/aggression -NRT -nicotine patch - on board for discharge planning. Encourage patient to participate in groups to work on coping skills. Likely discharge Thursday, if patient continues to improve. CONI ZHANG MD Active Medications Generic Name Dose Route Start Last Admin Trade Name Freq PRN Reason Stop Dose Admin Acetaminophen 650 mg 01/02/24 06:10 Acetaminophen Tab 325 Mg Tab PO Q4HR PRN Mild Pain (Scale 1 to 3) Al Hydroxide/Mg Hydroxide 30 ml 01/02/24 06:10 Mag Hydrox/Al Hydrox/Simeth 355 Ml Bottle PO Q4HR PRN GI Upset Haloperidol 5 mg 01/02/24 06:10 01/04/24 19:41 Haloperidol 5 Mg Tab PO 5 mg Q4HR PRN Administration Agitation Haloperidol Lactate 5 mg 01/02/24 06:10 Haloperidol Lactate 5 Mg/Ml 1 Ml Vial IM Q4HR PRN Severe Agitation Hydroxyzine Pamoate 25 mg 01/02/24 09:00 01/08/24 20:29 Hydroxyzine Pamoate 25 Mg Cap PO 25 mg TID NASREEN Administration Ibuprofen 600 mg 01/02/24 06:10 01/03/24 16:18 Ibuprofen 600 Mg Tab PO 600 mg Q6HR PRN Administration Moderate Pain (Scale 4 to 6) Lactulose 10 gm 01/06/24 16:45 01/08/24 20:31 Lactulose 20 Gm/30 Ml Cup PO Not Given TID NASREEN Lorazepam 1 mg 01/02/24 06:10 Lorazepam 1 Mg Tab PO Q6HR PRN Anxiety Lorazepam 1 mg 01/02/24 06:10 Lorazepam 2 Mg/Ml Inj IM Q6HR PRN Severe Agitation Magnesium Hydroxide 2,400 mg 01/02/24 06:10 01/06/24 15:14 Magnesium Hydroxide 2,400 Mg/30 Ml Cup PO 2,400 mg DAILY PRN Administration Constipation Melatonin 5 mg 01/02/24 21:00 01/08/24 20:29 Melatonin 5 Mg Tablet PO 5 mg HS NASREEN Administration Olanzapine 7.5 mg 01/05/24 21:00 01/08/24 20:30 Olanzapine 7.5 Mg Tab PO 7.5 mg HS NASREEN Administration Prazosin HCl 1 mg 01/02/24 21:00 01/08/24 20:29 Prazosin 1 Mg Cap PO 1 mg HS NASREEN Administration Sertraline HCl 200 mg 01/02/24 09:00 01/08/24 08:09 Sertraline 100 Mg Tab PO 200 mg DAILY NASREEN Administration Trazodone HCl 50 mg 01/02/24 06:10 01/07/24 20:35 Trazodone Hcl 50 Mg Tab PO 50 mg HS PRN Administration Insomnia Objective - Vital Signs Vital signs: Vital Signs Temp 97.4 F L 01/08/24 06:28 Pulse 70 01/09/24 06:37 Resp 16 01/08/24 06:28 BP 116/59 01/09/24 06:37 Pulse Ox 98 01/07/24 06:43 FiO2
[2024-01-10] MEDS: ACETAMINOPHEN TAB 325 MG TAB PO PRN (03:16)
[2024-01-10] MEDS: LORazepam 1 MG TAB PO PRN (03:17)
[2024-01-10] MEDS: DOCUSATE 100 MG CAP PO SCH (08:35)
--- NOTE | 2024-01-10 08:37 | P.PN ---
Subjective Progress Note Date: 01/10/24 Principal diagnosis: IMPRESSIONS: Schizoaffective disorder unspecified Patient Name: Emiliana Cleaning Date of : [birth year] Patient Status: Inpatient Attending Provider: Wil Smith Date: 01/10/24 Initialization Date: 01/02/24 11:54 Subjective data: The patient was seen and chart was reviewed and case discussed with nursing staff Patient was laying in bed and seemed to be unmotivated for this interview Patient seems to be very irritated and was sarcastic towards her roommate stating that she did not sleep well because her snoring kept her up She states that the voices come and go She then turned around and put a pillow over her head and wanted to be left alone General Appearance: Patient appears to be stated age is alert, directable, and attempts to cooperate. Patient appears to have good hygiene and grooming. Dressed in his own clothes, Behavior: Patient is somewhat irritated over not being able to sleep last night well Speech: Patient's speech is fluent and nonpressured. soft tone of voice Mood/Affect: Patient reports their mood is depressed, affect is congruent and constricted. flat. Suicidality/Homicidality: Patient denies having any homicidal ideation intent or plan. Denies any suicidal ideations intent or plan Perceptions: Patient denies any visual hallucinations and denies any auditory hallucinations at this time but states that the auditory hallucinations are intermittent Though content/process: There is no evidence of any delusional thought content and thought process is linear and goal-directed. concrete. Memory and concentration: AOX3, grossly intact for the purposes of this session. Judgment and insight: [place] has some insight IMPRESSIONS: Schizoaffective disorder unspecified PLAN: -Patient is admitted under voluntary status to MHU for stabilization of psychiatric symptoms and safety. Patient has signed adult voluntary form and medication consent and is placed in patient's chart. -Medications : We will continue her current home medications that includes Risperdal has been discontinued and patient is now on Zyprexa 7.5 mg daily Zoloft 200 mg daily Prazosin 1 mg at bedtime Trazodone 50 mg at bedtime as needed -Ativan and Haldol PRN for agitation/aggression -NRT -nicotine patch -SW on board for discharge planning. Encourage patient to participate in groups to work on coping skills. Likely discharge Thursday, if patient continues to improve. CONI ZHANG MD Active Medications Generic Name Dose Route Start Last Admin Trade Name Freq PRN Reason Stop Dose Admin Acetaminophen 650 mg 01/02/24 06:10 Acetaminophen Tab 325 Mg Tab PO Q4HR PRN Mild Pain (Scale 1 to 3) Al Hydroxide/Mg Hydroxide 30 ml 01/02/24 06:10 Mag Hydrox/Al Hydrox/Simeth 355 Ml Bottle PO Q4HR PRN GI Upset Haloperidol 5 mg 01/02/24 06:10 01/04/24 19:41 Haloperidol 5 Mg Tab PO 5 mg Q4HR PRN Administration Agitation Haloperidol Lactate 5 mg 01/02/24 06:10 Haloperidol Lactate 5 Mg/Ml 1 Ml Vial IM Q4HR PRN Severe Agitation Hydroxyzine Pamoate 25 mg 01/02/24 09:00 01/08/24 20:29 Hydroxyzine Pamoate 25 Mg Cap PO 25 mg TID NASREEN Administration Ibuprofen 600 mg 01/02/24 06:10 01/03/24 16:18 Ibuprofen 600 Mg Tab PO 600 mg Q6HR PRN Administration Moderate Pain (Scale 4 to 6) Lactulose 10 gm 01/06/24 16:45 01/08/24 20:31 Lactulose 20 Gm/30 Ml Cup PO Not Given TID NASREEN Lorazepam 1 mg 01/02/24 06:10 Lorazepam 1 Mg Tab PO Q6HR PRN Anxiety Lorazepam 1 mg 01/02/24 06:10 Lorazepam 2 Mg/Ml Inj IM Q6HR PRN Severe Agitation Magnesium Hydroxide 2,400 mg 01/02/24 06:10 01/06/24 15:14 Magnesium Hydroxide 2,400 Mg/30 Ml Cup PO 2,400 mg DAILY PRN Administration Constipation Melatonin 5 mg 01/02/24 21:00 01/08/24 20:29 Melatonin 5 Mg Tablet PO 5 mg HS NASREEN Administration Olanzapine 7.5 mg 01/05/24 21:00 01/08/24 20:30 Olanzapine 7.5 Mg Tab PO 7.5 mg HS NASREEN Administration Prazosin HCl 1 mg 01/02/24 21:00 01/08/24 20:29 Prazosin 1 Mg Cap PO 1 mg HS NASREEN Administration Sertraline HCl 200 mg 01/02/24 09:00 01/08/24 08:09 Sertraline 100 Mg Tab PO 200 mg DAILY NASREEN Administration Trazodone HCl 50 mg 01/02/24 06:10 01/07/24 20:35 Trazodone Hcl 50 Mg Tab PO 50 mg HS PRN Administration Insomnia Objective - Vital Signs Vital signs: Vital Signs Temp 98.1 F 01/10/24 06:05 Pulse 80 01/10/24 06:05 Resp 16 01/10/24 06:05 BP 124/60 01/10/24 06:05 Pulse Ox 99 01/10/24 06:05 FiO2
--- NOTE | 2024-01-11 21:56 | P.PN ---
Progress Note - Text Progress Note Date: 01/11/24 Follow-up Mediation Review Chief Complaint: I am better Subjective: The patient noted that she had a bad weekend. The patient was very upset after talking her mother. The patient told her mother that she will be getting discharged on Thursday. The mother got upset because no one informed her about patients discharge. Her discharged was discussed on Thursday. The patient noted that her mother did not want her to come home, if not better. Next day patient had episode of seeing bugs, screaming pulling her clothes, stating the bugs are getting in to her skin. She was redirected and reassured. The patient settled down. Today. she is feeling better. She appeared tired. The patient is attending the groups today. Her participation in groups is good. The interaction with staff and peers is good. The patient is compliant with medications. Leading questions: The patient admitted to Depression and Anxiety. Denied SI or HI. Denied hallucinations or delusions since yesterday. Sleep and Appetite: fair. Change in family/ living/job/financial/daily routine: No change. Change in medical condition: No change. Change in medications: Risperdal is d/c. Side effects from Medications: None. Allergies: No change. Objective- MSE: Alert and attentive. Orientation times three. Dressed and Groomed: Appropriately. Pleasant and cooperative. Psychomotor Activity: Normal. Speech: Normal in tone, quality, and quantity. Mood: Depressed and anxious. Affect: Appropriate to the mood. SI or HI: None. Perceptual disturbance: She had an episode of hallucination over the weekend. Thought Content: No paranoia or other delusional thinking noted. Thought Process: Normal. Cognition: Intact Judgment and Insight: Poor. AIMS: Normal. Labs: No new labs. Diagnosis: No change. Plan and Recommendations: Continue current Medications. Zyprexa increased to 10 mg daily. Monitor MS and side effects of medications and adjust medications accordingly. Provide supportive psychotherapy. The patient provided psychoeducation and advised The patient to attend duff activities. Medication Consent with explanation of risk/benefits and side effects: Explained and obtained.
[2024-01-11] MEDS: OLANZapine 10 MG TAB PO SCH (22:01)
--- NOTE | 2024-01-12 20:43 | P.PN ---
Progress Note - Text Progress Note Date: 01/12/24 Follow-up Mediation Review Chief Complaint: I am better Subjective: The patient reported doing fine. She had no hallucinations yesterday. She has been attending groups. She did not have any other complaints. Overall patient is showing improvement. The patient is attending the groups today. Her participation in groups is good. The interaction with staff and peers is good. The patient is compliant with medications. Leading questions: The patient admitted to Depression and Anxiety. Denied SI or HI. Denied hallucinations or delusions since yesterday. Sleep and Appetite: fair. Change in family/ living/job/financial/daily routine: No change. Change in medical condition: No change. Change in medications: No change. Side effects from Medications: None. Allergies: No change. Objective- MSE: Alert and attentive. Orientation times three. Dressed and Groomed: Appropriately. Pleasant and cooperative. Psychomotor Activity: Normal. Speech: Normal in tone, quality, and quantity. Mood: Depressed and anxious. Affect: Appropriate to the mood. SI or HI: None. Perceptual disturbance: She had an episode of hallucination over the weekend. Thought Content: No paranoia or other delusional thinking noted. Thought Process: Normal. Cognition: Intact Judgment and Insight: Poor. AIMS: Normal. Labs: No new labs. Diagnosis: No change. Plan and Recommendations: Continue current Medications. Monitor MS and side effects of medications and adjust medications accordingly. Provide supportive psychotherapy. The patient provided psychoeducation and advised The patient to attend duff activities. Medication Consent with explanation of risk/benefits and side effects: Explained and obtained.
--- NOTE | 2024-01-13 11:39 | P.PN ---
Progress Note - Text Progress Note Date: 01/13/24 Follow-up Mediation Review Chief Complaint: I am good Subjective: The patient reported doing fine. She indicated attending only half of the groups. She intends to attend all the groups today. The patient indicated that her mother is coming to visit her today. The patient denied having any hallucinations. Her stated mood was good. She appeared in better spirits. Overall, the patient is showing improvement. The patient is attending the groups today. Her participation in groups is good. The interaction with staff and peers is good. The patient is compliant with medications. Leading questions: The patient admitted to Depression and Anxiety. Denied SI or HI. Denied hallucinations or delusions since yesterday. Sleep and Appetite: fair. Change in family/ living/job/financial/daily routine: No change. Change in medical condition: No change. Change in medications: No change. Side effects from Medications: None. Allergies: No change. Objective- MSE: Alert and attentive. Orientation times three. Dressed and Groomed: Appropriately. Pleasant and cooperative. Psychomotor Activity: Normal. Speech: Normal in tone, quality, and quantity. Mood: Depressed and anxious. Affect: Appropriate to the mood. SI or HI: None. Perceptual disturbance: She had an episode of hallucination over the weekend. Thought Content: No paranoia or other delusional thinking noted. Thought Process: Normal. Cognition: Intact Judgment and Insight: Poor. AIMS: Normal. Labs: No new labs. Diagnosis: No change. Plan and Recommendations: Continue current Medications. Monitor MS and side effects of medications and adjust medications accordingly. Provide supportive psychotherapy. The patient provided psychoeducation and advised The patient to attend duff activities. Medication Consent with explanation of risk/benefits and side effects: Explained and obtained.
[2024-01-14 10:13] VITALS: BMI 35.8
--- NOTE | 2024-01-14 10:13 | P.PN ---
Progress Note - Text Progress Note Date: 01/14/24 Follow-up Mediation Review Chief Complaint: I am good Subjective: The patient reported doing fine. She attended all the groups yesterday. The patient did not meet with her mother. She received some things from her. The patient denied feeling depressed or anxious. The patient denied having any hallucinations. Her stated mood was good. She appeared in better spirits. Overall, the patient is showing improvement. The patient is attending the groups today. Her participation in groups is good. The interaction with staff and peers is good. The patient is compliant with medications. Leading questions: The patient admitted to Depression and Anxiety. Denied SI or HI. Denied hallucinations or delusions since yesterday. Sleep and Appetite: Good. Change in family/ living/job/financial/daily routine: No change. Change in medical condition: No change. Change in medications: No change. Side effects from Medications: None. Allergies: No change. Objective- MSE: Alert and attentive. Orientation times three. Dressed and Groomed: Appropriately. Pleasant and cooperative. Psychomotor Activity: Normal. Speech: Normal in tone, quality, and quantity. Mood: Depressed and anxious. Affect: Appropriate to the mood. SI or HI: None. Perceptual disturbance: She had an episode of hallucination over the weekend. Thought Content: No paranoia or other delusional thinking noted. Thought Process: Normal. Cognition: Intact Judgment and Insight: Poor. AIMS: Normal. Labs: No new labs. Diagnosis: No change. Plan and Recommendations: Continue current Medications. Monitor MS and side effects of medications and adjust medications accordingly. Provide supportive psychotherapy. The patient provided psychoeducation and advised The patient to attend duff activities. Medication Consent with explanation of risk/benefits and side effects: Explained and obtained.
[2024-01-15 07:11] VITALS: BP 104/56; PULSE 78; RESP 14; TEMP 97.8
[2024-01-15] MEDS ORDERED: hydrOXYzine pamoate 25 MG CAP PO PRN (14:29)
--- NOTE | 2024-01-15 15:04 | P.DS ---
Providers Date of admission: 01/02/24 06:00 Expected date of discharge: 01/15/24 Attending physician: Wil Smith MD Consults: 01/02/24 06:10 Consult Physician Routine Consulting Provider: José Aldrich Consult Reason/Comments: For H & P for medical follow up Do you want consulting provider notified?: Yes Primary care physician: Carina Pereyra - Discharge Diagnosis(es) (1) Schizoaffective disorder Current Visit: Yes Status: Acute Priority: High Patient Condition at Discharge: Stable Plan - Discharge Summary Discharge Rx Participant: Yes New Discharge Prescriptions: New traZODone HCL [Desyrel] 50 mg PO HS PRN 30 Days #30 tab PRN Reason: Insomnia Melatonin 5 mg PO HS tab Prazosin [Minipress] 1 mg PO HS 30 Days #30 cap Sertraline [Zoloft] 200 mg PO DAILY 30 Days #30 tab OLANZapine [ZyPREXA] 10 mg PO HS 30 Days #30 tab Continue fluPHENAZine [Prolixin] 1 mg PO BID 30 Days tab hydrOXYzine pamoate [Vistaril] 25 mg PO TID 15 Days #45 cap Discontinued Benztropine Mesylate [Cogentin] 0.5 mg PO BID 30 Days tab Prazosin [Minipress] 1 mg PO HS 15 Days #15 cap risperiDONE [RisperDAL] 1 mg PO DAILY 15 Days #15 tab Sertraline [Zoloft] 200 mg PO DAILY 15 Days #15 tab risperiDONE [RisperDAL] 3 mg PO HS 15 Days #15 tab Discharge Medication List fluPHENAZine [Prolixin] 1 mg PO BID 30 Days tab 04/20/20 [Rx] hydrOXYzine pamoate [Vistaril] 25 mg PO TID 15 Days #45 cap 12/30/23 [Rx] Melatonin 5 mg PO HS tab 01/15/24 [Rx] OLANZapine [ZyPREXA] 10 mg PO HS 30 Days #30 tab 01/15/24 [Rx] Prazosin [Minipress] 1 mg PO HS 30 Days #30 cap 01/15/24 [Rx] Sertraline [Zoloft] 200 mg PO DAILY 30 Days #30 tab 01/15/24 [Rx] traZODone HCL [Desyrel] 50 mg PO HS PRN 30 Days #30 tab 01/15/24 [Rx] Follow up Appointment(s)/Referral(s): [facility] [Outside] - 01/18/24 1:00 pm (01/18/2024 1:00PM - 2:00PM PAWAN VELARDE 01/26/2024 11:30AM - 12:00PM SHI SAMAYOA ) Carina Pereyra MD [Primary Care Provider] - 1-2 days Patient Instructions/Handouts: Schizoaffective Disorder (DC), Psychotic Disorder (DC) Activity/Diet/Wound Care/Special Instructions: Avoid the use of street drugs and alcohol. Take all medications as prescribed. When you are in need of refills on your medications, please contact your medical provider and/or outpatient psychiatrist/provider to have this done. Please go to your scheduled outpatient appointment for aftercare treatment. If symptoms return or become worse, call the crisis line at and/or go to the nearest emergency room for evaluation. National Suicide Hotline 988. Dr. Smith recommends following up with a Neurologist to rule out organic causes of hallucinations. [facility] will have a program at [facility] on January 25 at 5:30 pm and is a good support group for education, support, advocate and listen to improve the lives of people with mental illness and their loved ones. Discharge Disposition: HOME SELF-CARE
== END 2024-01-15 16:03 | disposition home or self-care (01) | DRG 750 ==
LOC: EC 20:04 → 3MHU 01-02 06:00
PROVIDERS: ADMIT Psychiatry & Neurology Psychiatry; ATTEND Psychiatry & Neurology Psychiatry
DX: F25.9 Schizoaffective disorder, unspecified (principal); F41.0 Panic disorder [episodic paroxysmal anxiety]; F43.10 Post-traumatic stress disorder, unspecified; Z60.4 Social exclusion and rejection; Z53.20 Procedure and treatment not carried out because of patient's decision for unspecified reasons; Z11.52 Encounter for screening for COVID-19; Z28.01 Immunization not carried out because of acute illness of patient; F32.A Depression, unspecified; Z79.899 Other long term (current) drug therapy
CPT/HCPCS: 80306; 81001; 81025; 82075; 87635; 99285